=== PATIENT | male | born 1960 | race Hispanic/Latino ===

== ENCOUNTER 2017-02-14 14:23 | Emergency (ER) | payer MEDICARE ==
[2017-02-14 14:23] VITALS: BMI 32.3
[2017-02-14 14:30] VITALS: BP 142/89; PULSE 113; RESP 20; TEMP 97.9; O2SAT 96
--- NOTE | 2017-02-14 16:09 | ED PDOC ---
HPI: Psych/Substance Abuse Time Seen by Provider: 02/14/17 16:04 Chief Complaint (Nursing): Substance Abuse Chief Complaint (Provider): probable drug abuse Additional Complaint(s): 57yo M in ED for eval of ? drug OD was found in house unresponsive cyanotic and with weak pulses. pt was give narcan 2mg and immediately was responsive, alert and oriented,normal breathing pattern, normal gait, very active. in ED pt looks well appearing, wanting to leave ER-pt began to leave ER and was followed by staff and convinced to return for further examination. Pt states has hx of AFIB , hx of heavy drinking and admits when he drinks too much he passes out. denies other drug abuse. Against Medical Advice - AMA Patient Left Against Medical Advice: The patient declines admission to the hospital and wishes to leave the Emergency Department. This action is against my medical advice. This decision was made with informed refusal. The patient was told that admission to the hospital is necessary. Explanation of the reasons why were discussed. The risks of leaving were explained to the patient and include, but are not limited to, worsening of known or currently unknown conditions, permanent disability and from undiagnosed or untreated conditions. The patient has the capacity to make this informed decision and understands my explanation of the current medical problem and risks of leaving. The patient voluntarily accepts these risks and signed an AMA form documenting our conversation. The patient was given the opportunity to ask questions and reconsider. The patient was encouraged to return to the Emergency Department at any time for further care. Past Medical History Reviewed: Historical Data, Nursing Documentation, Vital Signs Vital Signs: Last Vital Signs Temp 97.9 F 02/14/17 14:25 Pulse 113 H 02/14/17 14:25 Resp 20 02/14/17 14:25 BP 142/89 02/14/17 14:25 Pulse Ox 96 02/14/17 14:25 - Medical History PMH: Anemia, Arthritis, Back Problems, HTN (No meds taken), Rheumatoid Arthritis , Chronic Pain (bilateral legs) Denies: Chronic Kidney Disease - Surgical History Surgical History: Hernia Repair (ventral) - Family History Family History: States: Unknown Family Hx - Immunization History Hx Tetanus Toxoid Vaccination: No Hx Influenza Vaccination: No Hx Pneumococcal Vaccination: No - Home Medications Home Medications: Ambulatory Orders Medication Instructions Recorded Oxycodone HCl/Acetaminophen 1 tab PO PRN PRN #0 tab 02/20/16 [Percocet 5-325 mg Tablet] Apixaban [Eliquis] 5 mg PO BID #60 tablet 09/27/16 Carvedilol [Coreg] 3.125 mg PO Q12 #60 tab 09/27/16 Prednisone [Deltasone] 20 mg PO DAILY #20 tablet 09/27/16 - Allergies Allergies/Adverse Reactions: Allergies Allergy/AdvReac Type Severity Reaction Status Date / Time colchicine AdvReac Severe NAUSEA Verified 09/23/16 20:06 indomethacin AdvReac Severe NAUSEA Verified 09/23/16 20:06 Review of Systems ROS Statement: Except As Marked, All Systems Reviewed And Found Negative Neurological: Negative for: Weakness, Numbness, Incoordination, Change in Speech , Confusion, Seizures, Altered Mental Status, Headache, Dizziness Psych: Negative for: Psychosis, Suicidal ideation Physical Exam - Reviewed Nursing Documentation Reviewed: Yes Vital Signs Reviewed: Yes - Physical Exam Appears: Positive for: Well, Non-toxic, No Acute Distress Head Exam: Positive for: ATRAUMATIC, NORMAL INSPECTION, NORMOCEPHALIC Skin: Positive for: Normal Color, Warm, DRY Eye Exam: Positive for: EOMI, Normal appearance, PERRL ENT: Positive for: Normal ENT Inspection Neck: Positive for: Normal, Painless ROM Cardiovascular/Chest: Positive for: Regular Rate, Rhythm Respiratory: Positive for: CNT, Normal Breath Sounds Gastrointestinal/Abdominal: Positive for: Normal Exam, Bowel Sounds, Soft Neurologic/Psych: Positive for: Alert, consumer banker II-XII (intact), Oriented, Mood/ Affect (well appearing. ), Gait (stable). Negative for: Motor/Sensory Deficits - ECG ECG Rhythm: Positive for: Normal QRS, Normal ST Segment O2 Sat by Pulse Oximetry: 96 - Progress ED Course And Treament: pt received narcan prior to ED arrival. pt alert and oriented over an hour, however due to hx of afib will do basic labs including Utox Medical Decision Making Medical Decision Making: pt refuses to stay for results of lab works though considering pt medical hx- however pt refuses to stay and will sign out AMA. pt made to understand the reason for blood work to make sure he is medically stable, VS have improved in ED. pt advised to return to ED for other concerns. Disposition - Clinical Impression Clinical Impression: Opioid abuse - Patient ED Disposition Is Patient to be Admitted: No - Disposition Disposition: Against Medical Advice Disposition Time: 16:22 Condition: STABLE Instructions: Polysubstance Abuse (ED)
[2017-02-14 16:40] LABS: BASO % 0.2 % (0.0-2.0); EOS % 0.3 % (0.0-4.0); HEMATOCRIT 41.9 % (35.0-51.0); LYMPH # 1.4 K/uL (1.0-4.3); LYMPH % 9.2 % (20.0-40.0); MEAN CELL VOLUME 94.7 fl (80.0-94.0); MEAN CORPUSCULAR HEMOGLOBIN 31.9 pg (27.0-31.0); MEAN CORPUSCULAR HGB CONC 33.7 g/dL (33.0-37.0); MONO # 1.1 K/uL (0.0-0.8); MONO % 7.1 % (0.0-10.0); NEUT # 12.9 K/uL (1.8-7.0); NEUT % 83.2 % (50.0-75.0); PLATELET COUNT 252 K/uL (130-400); RED CELL DISTRIBUTION WIDTH 12.6 % (11.5-14.5); WHITE BLOOD COUNT 15.5 K/uL (4.8-10.8)
[2017-02-14 16:51] LABS: ALB/GLOB RATIO 1.5 (1.0-2.1); ALCOHOL SERUM 114 mg/dl (0-10); ALKALINE PHOSPHATASE 74 U/L (38-126); ALT/SGPT 32 U/L (21-72); AST/SGOT 30 U/L (17-59); BILIRUBIN,TOTAL 0.4 mg/dl (0.2-1.3); BLOOD UREA NITROGEN 8 mg/dl (9-20); CALCIUM 9.4 mg/dL (8.4-10.2); CARBON DIOXIDE 22 mmol/L (22-30); CHLORIDE 99 mmol/L (98-107); GFR AFRICAN-AMERICAN > 60; GLUCOSE,RANDOM 94 mg/dL (75-110); SODIUM 137 mmol/l (132-148); TOTAL PROTEIN 8.5 G/DL (6.3-8.2)
[2017-02-14 18:14] LABS: BASOPHIL 1 % (0-2); NEUTROPHIL 77 % (42-75); TOTAL CELLS COUNTED 100
== END 2017-02-14 16:41 | disposition left against medical advice (07) ==
LOC: H.ER 14:23
DX: F19.10 Other psychoactive substance abuse, uncomplicated (principal)
CPT/HCPCS: 80053; 82948; 85025; 99283; G0480

== ENCOUNTER 2017-09-27 23:57 | Inpatient (IN) | payer MEDICARE ==
[2017-09-28 00:23] VITALS: BMI 33.0
[2017-09-28] MEDS ORDERED: Sodium Chloride 0.9% 1,000 ML IV STA (00:24)
[2017-09-28] MEDS ORDERED: HYDROmorphone 0.5 mg/0.5 ml ISec IVP STA ×2 (00:24→03:02)
[2017-09-28 01:01] LABS: BASO # 0.1 K/uL (0.0-0.2); BASO % 0.7 % (0.0-2.0); EOS # 0.2 K/uL (0.0-0.7); EOS % 1.4 % (0.0-4.0); HEMOGLOBIN 14.5 g/dL (12.0-18.0); LYMPH # 2.5 K/uL (1.0-4.3); LYMPH % 22.4 % (20.0-40.0); MEAN CELL VOLUME 93.2 fl (80.0-94.0); MEAN CORPUSCULAR HEMOGLOBIN 31.6 pg (27.0-31.0); MEAN CORPUSCULAR HGB CONC 33.9 g/dL (33.0-37.0); MEAN PLATELET VOLUME 8.5 fl (7.2-11.7); MONO % 8.4 % (0.0-10.0); NEUT # 7.6 K/uL (1.8-7.0); NEUT % 67.1 % (50.0-75.0); RBC 4.59 Mil/uL (4.40-5.90); RED CELL DISTRIBUTION WIDTH 13.7 % (11.5-14.5); WHITE BLOOD COUNT 11.3 K/uL (4.8-10.8)
[2017-09-28 01:16] LABS: ALBUMIN 4.5 g/dL (3.5-5.0); ALT/SGPT 29 U/L (21-72); AST/SGOT 22 U/L (17-59); BLOOD UREA NITROGEN 12 mg/dl (9-20); CALCIUM 9.8 mg/dL (8.4-10.2); GFR AFRICAN-AMERICAN > 60; GFR NON-AFRICAN AMERICAN > 60; LIPASE 68 U/L (23-300)
[2017-09-28 01:20] LABS: URINE BILIRUBIN NEGATIVE (NEGATIVE); URINE BLOOD NEGATIVE (NEGATIVE); URINE CLARITY CLEAR (Clear); URINE COLOR YELLOW (YELLOW); URINE GLUCOSE (UA) NEG (Normal); URINE LEUKOCYTE ESTERASE NEG Leu/uL (Negative); URINE NITRATE NEGATIVE (NEGATIVE); URINE PROTEIN NEGATIVE (NEGATIVE); URINE UROBILINOGEN 0.2-1.0 mg/dL (0.2-1.0)
[2017-09-28 01:21] LABS: ALB/GLOB RATIO 1.2 (1.0-2.1)
[2017-09-28 01:22] LABS: BARBITURATES, UR NEGATIVE (NEGATIVE); BENZODIAZEPINES, UR NEGATIVE (NEGATIVE); PHENCYCLIDINE, UR NEGATIVE (NEGATIVE)
[2017-09-28 01:23] LABS: OPIATES, UR POSITIVE (NEGATIVE)
[2017-09-28] MEDS ORDERED: Sodium Chloride 0.9% 50 ML IV ONE (01:41)
[2017-09-28] MEDS ORDERED: Iohexol 300 100 ML IJ ONE (01:41)
--- NOTE | 2017-09-28 02:38 | CT ---
EXAM: CT Abdomen and Pelvis With Intravenous Contrast CLINICAL HISTORY: 57 years old, male; Pain; Abdominal pain; Generalized; Prior surgery; Surgery date: 6+ months; Surgery type: Hernia repair; Additional info: Possible sbo TECHNIQUE: Axial computed tomography images of the abdomen and pelvis with intravenous contrast. All CT scans at this facility use one or more dose reduction techniques, viz.: automated exposure control; ma/kV adjustment per patient size (including targeted exams where dose is matched to indication; i.e. head); or iterative reconstruction technique. 694 images are submitted. Axial images are submitted and lung windows. Coronal and sagittal reformatted images were created and reviewed. CONTRAST: 95 mL of [id number] administered intravenously. COMPARISON: CT - ABD PELVIS PO IV CONTRAST 2016-02-04 09:00 FINDINGS: Lower thorax: Nonspecific left lower lobe and lingular infiltration representing sequela of infectious or inflammatory etiology unchanged from prior examination. Small pericardial fluid. ABDOMEN: Liver: Fatty liver. Gallbladder and bile ducts: Contracted gallbladder with gallbladder wall thickening and pericholecystic infiltration. Pancreas: Unremarkable. No mass. No ductal dilation. Spleen: Unremarkable. No splenomegaly. Adrenals: Unremarkable. No mass. Kidneys and ureters: Unremarkable. No solid mass. No hydronephrosis. Stomach and bowel: There is diastases of the anterior abdominal wall with herniation of bowel loops. There are fluid-filled bowel loops with air fluid level and bowel wall thickening and transition in the right hemiabdomen seen on image 95 series 3 suspicious for partial versus early small bowel obstruction. Correlation with patient's obstructive symptoms is recommended. Diverticulosis. Large amount of stool in the colon. Correlation with patient's clinical history of constipation is recommended. Appendix: Normal appendix. PELVIS: Bladder: Partially decompressed bladder with bladder wall thickening. Correlation with urinalysis is recommended only if clinical cystitis is suspected. Reproductive: Enlarged prostate gland. ABDOMEN and PELVIS: Intraperitoneal space: Unremarkable. No free air. No significant fluid collection. Bones/joints: L3-L4 vacuum degenerative disc disease. No acute fracture. No dislocation. Soft tissues: Unremarkable. Vasculature: Unremarkable. No abdominal aortic aneurysm. Lymph nodes: Unremarkable. No enlarged lymph nodes. Other findings: CRITICAL RESULT: The study was personally discussed on the telephone with Lauri Baxter on 09/28/2017 2:35 AM EST. The results were understood and acknowledged. IMPRESSION: 1. There is diastases of the anterior abdominal wall with herniation of bowel loops. There are fluid-filled bowel loops with air fluid level and bowel wall thickening and transition in the right hemiabdomen seen on image 95 series 3 suspicious for partial versus early small bowel obstruction. Correlation with patient's obstructive symptoms is recommended.
--- NOTE | 2017-09-28 02:38 | ED PDOC ---
HPI: Abdomen Time Seen by Provider: 09/28/17 00:17 Chief Complaint (Nursing): Abdominal Pain Chief Complaint (Provider): Abdominal Pain History Per: Patient History/Exam Limitations: no limitations Onset/Duration Of Symptoms: Days (1 day ago) Current Symptoms Are (Timing): Still Present Location Of Pain/Discomfort: Periumbilical Additional Complaint(s): 57 yo male with a past medical history of Gout,A-Fib, and chronic abdominal pain with multiple previous abdominal surgeries, presents to the ED complaining of periumbilical abdominal pain associated with distension. onset of 1 day ago. Patient denies any other complaints. PCP: Latrice Rosales Past Medical History Reviewed: Historical Data Vital Signs: Last Vital Signs Temp 98.7 F 09/28/17 03:46 Pulse 75 09/28/17 03:46 Resp 18 09/28/17 03:46 BP 148/94 H 09/28/17 03:46 Pulse Ox 97 09/28/17 03:45 - Medical History PMH: Anemia, Arthritis, Atrial Fibrillation, Back Problems, HTN (No meds taken) , Obstructive Bowel, Rheumatoid Arthritis, Chronic Pain (bilateral legs) Denies: Chronic Kidney Disease - Surgical History Surgical History: Hernia Repair (ventral) - Family History Family History: States: Unknown Family Hx - Social History Current smoker - smoking cessation education provided: No Ex-Smoker (has not smoked in the last 12 months): No Alcohol: None Drugs: Denies - Immunization History Hx Tetanus Toxoid Vaccination: No Hx Influenza Vaccination: No Hx Pneumococcal Vaccination: No - Home Medications Home Medications: Ambulatory Orders Medication Instructions Recorded Allopurinol [Zyloprim] 300 mg PO DAILY 09/28/17 Ibuprofen/Diphenhydramine Cit 2 tab PO HS PRN 09/28/17 [Advil Pm Caplet] Oxycodone HCl/Acetaminophen 1 each PO QID PRN 09/28/17 [Percocet 10-325 mg Tablet] - Allergies Allergies/Adverse Reactions: Allergies Allergy/AdvReac Type Severity Reaction Status Date / Time colchicine AdvReac Severe NAUSEA Verified 09/28/17 03:10 indomethacin AdvReac Severe NAUSEA Verified 09/28/17 03:10 Review of Systems ROS Statement: Except As Marked, All Systems Reviewed And Found Negative Constitutional: Negative for: Fever Gastrointestinal: Positive for: Abdominal Pain (periumbilical). Negative for: Nausea, Vomiting, Diarrhea Physical Exam - Reviewed Nursing Documentation Reviewed: Yes Vital Signs Reviewed: Yes - Physical Exam Appears: Positive for: Non-toxic, No Acute Distress Head Exam: Positive for: ATRAUMATIC Skin: Positive for: Normal Color, Warm Eye Exam: Positive for: Normal appearance, EOMI, PERRL Neck: Positive for: Normal, Painless ROM Cardiovascular/Chest: Positive for: Regular Rate, Rhythm. Negative for: Murmur Respiratory: Positive for: Normal Breath Sounds. Negative for: Respiratory Distress Gastrointestinal/Abdominal: Positive for: Normal Exam, Bowel Sounds (hpoactive ) , Soft, Tenderness (periumbilical region), Distended, Other (multiple surgical scars) Back: Positive for: Normal Inspection Extremity: Positive for: Normal ROM. Negative for: Pedal Edema, Deformity Neurologic/Psych: Positive for: Alert, Oriented. Negative for: Motor/Sensory Deficits - Laboratory Results Result Diagrams: 09/28/17 00:42 09/28/17 00:42 - ECG O2 Sat by Pulse Oximetry: 99 (RA) Pulse Ox Interpretation: Normal Medical Decision Making Medical Decision Making: Time: --00:23 Impression: --57 yo male with abdominal pain in setting of multiple previous abdominal surgeries and history of small bowel obstruction Plan: --ECG --Hydromorphone 1 mg IVP --Iv fluids --Heplock Insertion Reassess --02:[address] rosales, surgical consult, and she agrees with the provider's decision to admit the patient. Provider also spoke to the resident,Dr. Sheets. Patient to be admitted to the hospital --02:37 EXAM: CT Abdomen and Pelvis With Intravenous Contrast FINDINGS: Lower thorax: Nonspecific left lower lobe and lingular infiltration representing sequela of infectious or inflammatory etiology unchanged from prior examination. Small pericardial fluid. ABDOMEN: Liver: Fatty liver. Gallbladder and bile ducts: Contracted gallbladder with gallbladder wall thickening and pericholecystic infiltration. Pancreas: Unremarkable. No mass. No ductal dilation. Spleen: Unremarkable. No splenomegaly. Adrenals: Unremarkable. No mass. Kidneys and ureters: Unremarkable. No solid mass. No hydronephrosis. Stomach and bowel: There is diastases of the anterior abdominal wall with herniation of bowel loops. There are fluid-filled bowel loops with air fluid level and bowel wall thickening and transition in the right hemiabdomen seen on image 95 series 3 suspicious for partial versus early small bowel obstruction. Correlation with patient's obstructive symptoms is recommended. Diverticulosis. Large amount of stool in the colon. Correlation with patient's clinical history of constipation is recommended. Appendix: Normal appendix. PELVIS: Bladder: Partially decompressed bladder with bladder wall thickening. Correlation with urinalysis is recommended only if clinical cystitis is suspected. Reproductive: Enlarged prostate gland. ABDOMEN and PELVIS: Intraperitoneal space: Unremarkable. No free air. No significant fluid collection. Bones/joints: L3-L4 vacuum degenerative disc disease. No acute fracture. No dislocation. Soft tissues: Unremarkable. Vasculature: Unremarkable. No abdominal aortic aneurysm. Lymph nodes: Unremarkable. No enlarged lymph nodes. Other findings: CRITICAL RESULT: The study was personally discussed on the telephone with Lauri Baxter on 09/28/2017 2:35 AM EST. The results were understood and acknowledged. IMPRESSION: 1. There is diastases of the anterior abdominal wall with herniation of bowel loops. There are fluid-filled bowel loops with air fluid level and bowel wall thickening and transition in the right hemiabdomen seen on image 95 series 3 suspicious for partial versus early small bowel obstruction. Correlation with patient's obstructive symptoms is recommended. Scribe Attestation: Documented by Silverio Otero acting as a scribe for Lauri Cali MD. Disposition - Clinical Impression Clinical Impression: Small bowel obstruction - Patient ED Disposition Is Patient to be Admitted: Yes Discussed With : Lizabeth Sheets Doctor Will See Patient In The: Hospital - Disposition Disposition Time: 02:46 Condition: FAIR
[2017-09-28] MEDS ORDERED: HYDROmorphone 0.5 mg/0.5 ml ISec ONE (02:57)
[2017-09-28] MEDS ORDERED: Sodium Chloride 0.9% 1,000 ML IV SCH (03:30)
[2017-09-28] MEDS ORDERED: Morphine 4 MG/ML VIAL IVP PRN (04:10)
--- NOTE | 2017-09-28 04:22 | CP.PCM.HP ---
History of Present Illness - History of Present Illness History of Present Illness: 57 yr old M presented to ED with complaint of worsening abdominal pain x 2days. Patient denies SOB, chest pain, weakness, dizziness, diarrhea or constipation. PMHx includes multiple abdominal surgeries for small bowel obstruction and hernia repair, lumbar spondylosis with chronic pain, HTN, A-fib, gout, perforated GI ulcer, osteoarthritis. His last bowel movement was yesterday and it was normal, has tolerated PO diet today. Patient reports he has not taken his past prescribed medications in over a year because he has not followed up with us in clinic and so ran out of refills after his last admission in 09/2016. He does however follow up regularly with Dr[facility]. Dr Edwards recently gave him one refill of allopurinol for his gout. PMD: none, has not followed up in clinic as scheduled Specialists: Latrice Hylton; Dr. Edwards-pain management PMHx: small bowel obstruction and hernia repair, lumbar spondylosis with chronic pain, HTN, A-fib, gout, perforated GI ulcer, osteoarthritis SurgHx: multiple abdominal surgeries for small bowel obstruction and hernia repair FMHx: mother at 74 for [place] SocHx: occasional Etoh, tobacco 6-7 cig QD x 36 yrs, denies drugs, is homeless Medications: taking percocet 5/325 mg 1 tab PO Q6 PRN pain, taking allopurinol 300mg PO QD; Not taking: Carvedilol 3.125mg PO BID, Eliquis 5mg PO BID Allergies: colchicine and indomethacin cause him internal bleeding ED course: BP 184/112 mmHg, Pulse 112, Resp rate 18, O2 sat 99F, Temp 97.2 F -labs: CBC: WBC 11.3, rest wnl, CMP wnl, UA negative, urine drug screen positive for opioids -Abd/Pelvis CT: diasteses of the anterior abdominal wall with herniation of bowel loops, evidence suspicious for partial vs early small bowel obstruction -Ed tx: NPO, NS 1 L bolus, Dilaudid 1 mg stat x 3, Reglan 10mg IVP once, NPO Present on Admission - Present on Admission Any Indicators Present on Admission: No History of DVT/PE: No History of Uncontrolled Diabetes: No Urinary Catheter: No Decubitus Ulcer Present: No History Surgical Site Infection Following: None Review of Systems - Review of Systems All systems: reviewed and no additional remarkable complaints except (for what is mentioned in the HPI) - Constitutional Constitutional: absent: Chills, Weakness - EENT Eyes: absent: Change in Vision Ears: absent: Ear Discharge, Ear Pain Nose/Mouth/Throat: Nasal Congestion, Nasal Discharge (reports recent URI) - Cardiovascular Cardiovascular: absent: Chest Pain, Dyspnea, Leg Edema - Respiratory Respiratory: absent: Hemoptysis - Gastrointestinal Gastrointestinal: Abdominal Pain (severe). absent: Diarrhea, Nausea, Vomiting - Genitourinary Genitourinary: absent: Difficulty Urinating, Dysuria - Musculoskeletal Musculoskeletal: Back Pain (chronic-lumbar) - Integumentary Integumentary: absent: Bleeding Lesions, Rash - Neurological Neurological: absent: Dizziness, Headaches - Psychiatric Psychiatric: absent: Homicidal Ideation, Suicidal Ideation - Endocrine Endocrine: absent: Palpitations, Polyuria - Hematologic/Lymphatic Hematologic: absent: Easy Bleeding, Easy Bruising Past Patient History - Past Medical History & Family History Past Medical History?: Yes - Past Social History Alcohol: None Drugs: Denies - CARDIAC Hx Cardiac Disorders: Yes (A-fib, HTN) - PULMONARY Hx Respiratory Disorders: No - NEUROLOGICAL Hx Neurological Disorder: No - HEENT Hx HEENT Problems: No - RENAL Hx Chronic Kidney Disease: No - ENDOCRINE/METABOLIC Hx Endocrine Disorders: No - HEMATOLOGICAL/ONCOLOGICAL Hx Blood Disorders: No - INTEGUMENTARY Hx Dermatological Problems: No - MUSCULOSKELETAL/RHEUMATOLOGICAL Hx Musculoskeletal Disorders: Yes (RA, arthritis) - GASTROINTESTINAL Hx Gastrointestinal Disorders: No Hx Ulcer: Yes - GENITOURINARY/GYNECOLOGICAL Hx Genitourinary Disorders: No - PSYCHIATRIC Hx Psychophysiologic Disorder: No - SURGICAL HISTORY Hx Surgeries: Yes Hx Herniorrhaphy: Yes Hx Musculoskeletal Surgery: Yes (ankle sx R) Other/Comment: BLEEDING ULCER;RIGHT ANKLE SURGERY/LEFT HERNIA SURGERY/EPIDURAL STEROID INJECTION. Multiple abd sx - ANESTHESIA Hx Anesthesia: Yes Hx Anesthesia Reactions: No Hx Malignant Hyperthermia: No Meds Allergies/Adverse Reactions: Allergies Allergy/AdvReac Type Severity Reaction Status Date / Time colchicine AdvReac Severe NAUSEA Verified 09/28/17 03:10 indomethacin AdvReac Severe NAUSEA Verified 09/28/17 03:10 Physical Exam - Constitutional Appears: No Acute Distress - Head Exam Head Exam: ATRAUMATIC, NORMOCEPHALIC - Eye Exam Eye Exam: EOMI - ENT Exam ENT Exam: Mucous Membranes Moist - Neck Exam Neck exam: Positive for: Full Rom. Negative for: Lymphadenopathy - Respiratory Exam Respiratory Exam: Clear to Auscultation Bilateral, NORMAL BREATHING PATTERN - Cardiovascular Exam Cardiovascular Exam: REGULAR RHYTHM, +S1, +S2 - GI/Abdominal Exam GI & Abdominal Exam: Distended, Normal Bowel Sounds (multiple abdominal scars at midline), Rigid (periumbilically ) - Extremities Exam Extremities exam: Positive for: full ROM. Negative for: pedal edema - Neurological Exam Neurological exam: Alert, CN II-XII Intact, Oriented x3 - Psychiatric Exam Psychiatric exam: Normal Affect, Normal Mood - Skin Skin Exam: Dry, Warm Results - Vital Signs Recent Vital Signs: Last Vital Signs Temp 98.7 F 09/28/17 03:46 Pulse 75 09/28/17 03:46 Resp 18 09/28/17 03:46 BP 148/94 H 09/28/17 03:46 Pulse Ox 97 09/28/17 03:45 - Labs Result Diagrams: 09/28/17 00:42 09/28/17 00:42 Labs: Laboratory Results - last 24 hr 09/28/17 09/28/17 09/28/17 00:41 00:42 00:42 WBC 11.3 H RBC 4.59 Hgb 14.5 Hct 42.8 MCV 93.2 MCH 31.6 H MCHC 33.9 RDW 13.7 Plt Count 265 MPV 8.5 Neut % (Auto) 67.1 Lymph % (Auto) 22.4 Mills % (Auto) 8.4 Eos % (Auto) 1.4 Baso % (Auto) 0.7 Neut # 7.6 H Lymph # 2.5 Mills # 1.0 H Eos # 0.2 Baso # 0.1 Sodium 139 Potassium 3.6 Chloride 99 Carbon Dioxide 28 Anion Gap 16 BUN 12 Creatinine 0.7 L Est GFR ( Amer) > 60 Est GFR (Non-Af Amer) > 60 Random Glucose 129 H Lactic Acid 1.9 Calcium 9.8 Total Bilirubin 0.3 AST 22 ALT 29 Alkaline Phosphatase 75 Total Protein 8.3 H Albumin 4.5 Globulin 3.8 Albumin/Globulin Ratio 1.2 Lipase 68 Urine Color Urine Clarity Urine pH Ur Specific [place] Urine Protein Urine Glucose (UA) Urine Ketones Urine Blood Urine Nitrate Urine Bilirubin Urine Urobilinogen Ur Leukocyte Esterase Urine RBC (Auto) Urine Microscopic WBC Urine Opiates Screen Urine Methadone Screen Ur Barbiturates Screen Ur Phencyclidine Scrn Ur Amphetamines Screen U Benzodiazepines Scrn U Oth Cocaine Metabols U Cannabinoids Screen Alcohol, Quantitative < 10 09/28/17 09/28/17 00:54 00:54 WBC RBC Hgb Hct MCV MCH MCHC RDW Plt Count MPV Neut % (Auto) Lymph % (Auto) Mills % (Auto) Eos % (Auto) Baso % (Auto) Neut # Lymph # Mills # Eos # Baso # Sodium Potassium Chloride Carbon Dioxide Anion Gap BUN Creatinine Est GFR ( Amer) Est GFR (Non-Af Amer) Random Glucose Lactic Acid Calcium Total Bilirubin AST ALT Alkaline Phosphatase Total Protein Albumin Globulin Albumin/Globulin Ratio Lipase Urine Color Yellow Urine Clarity Clear Urine pH 6.0 Ur Specific [place] 1.012 Urine Protein Negative Urine Glucose (UA) Neg Urine Ketones Negative Urine Blood Negative Urine Nitrate Negative Urine Bilirubin Negative Urine Urobilinogen 0.2-1.0 Ur Leukocyte Esterase Neg Urine RBC (Auto) 2 Urine Microscopic WBC 1 Urine Opiates Screen Positive H Urine Methadone Screen Negative Ur Barbiturates Screen Negative Ur Phencyclidine Scrn Negative Ur Amphetamines Screen Negative U Benzodiazepines Scrn Negative U Oth Cocaine Metabols Negative U Cannabinoids Screen Negative Alcohol, Quantitative Assessment & Plan - Assessment and Plan (Free Text) Assessment: 57 yr old M admitted for partial vs early small bowel obstruction with PMHx of multiple abdominal surgeries for small bowel obstruction and hernia repair. 1. Partial vs early small bowel obstruction -chronic, recurrent -Abd/Pelvis CT: diasteses of the anterior abdominal wall with herniation of bowel loops, evidence suspicious for partial vs early small bowel obstruction -Surgery consult appreciated: will follow recommendations -admit to med/surg -NPO, IVF, Zofran PRN, pain management 2. HTN -chronic, uncontrolled due to noncompliance with medication -re-start Carvedilol 3.125mg PO BID -monitor BP 3. Gout -chronic, controlled -re-start Allopurinol 300mg PO QD 4. DVT prophylaxis -Lovenox 40mg SC QD - Date & Time Date: 09/28/17 Time: 03:01
--- NOTE | 2017-09-28 06:28 | CP.PCM.CON ---
History of Present Illness - History of Present Illness History of Present Illness: General Surgery Consult Note for Dr. Rosales Reason for consult: abdominal pain 57 M with PMH of multiple abdominal surgeries and recurrent SBOs presents for worsening abdominal pain Patient states that he has had pain for 2 days. He reports that became much worse ysterday afternoon. Patient states that he has had similar pain in past when diagnosed with SBO. he states that he had a bowel movement was yesterday. He was tolerating food/liquids by mouth uyesterday without nausea/vomiting. Patient reports noncompliance with medications but follows up with Dr. Edwards for pain management. He rates pain as moderate. He describes pain as constant and cramping located in periumbilical region. Denies alleviating factors but states palpation exacerbates pain. 12 point ROS only positive for pain otherwise negative. PMH: small bowel obstruction and hernia repair, lumbar spondylosis with chronic pain, HTN, Afib, gout, perforated GI ulcer, osteoarthritis Meds: As per EMR Allergy: NKDA but states colchicine and indomethacin caused gastric bleeding PSH: multiple abdominal surgeries for small bowel obstruction and hernia repair FH: mother at 75 for [place] Social: current smoker - about half packe per day for 36 years, Occasional drinker, Denies illicit drug use, homeless Review of Systems - Review of Systems All systems: reviewed and no additional remarkable complaints except (as per HPI - abdominal pain) Past Patient History - Past Medical History & Family History Past Medical History?: Yes - Past Social History Alcohol: None Drugs: Denies - CARDIAC Hx Cardiac Disorders: Yes (A-fib, HTN) - PULMONARY Hx Respiratory Disorders: No - NEUROLOGICAL Hx Neurological Disorder: No - HEENT Hx HEENT Problems: No - RENAL Hx Chronic Kidney Disease: No - ENDOCRINE/METABOLIC Hx Endocrine Disorders: No - HEMATOLOGICAL/ONCOLOGICAL Hx Blood Disorders: No - INTEGUMENTARY Hx Dermatological Problems: No - MUSCULOSKELETAL/RHEUMATOLOGICAL Hx Musculoskeletal Disorders: Yes (RA, arthritis) - GASTROINTESTINAL Hx Gastrointestinal Disorders: No Hx Ulcer: Yes - GENITOURINARY/GYNECOLOGICAL Hx Genitourinary Disorders: No - PSYCHIATRIC Hx Psychophysiologic Disorder: No - SURGICAL HISTORY Hx Surgeries: Yes Hx Herniorrhaphy: Yes Hx Musculoskeletal Surgery: Yes (ankle sx R) Other/Comment: BLEEDING ULCER;RIGHT ANKLE SURGERY/LEFT HERNIA SURGERY/EPIDURAL STEROID INJECTION. Multiple abd sx - ANESTHESIA Hx Anesthesia: Yes Hx Anesthesia Reactions: No Hx Malignant Hyperthermia: No Meds Allergies/Adverse Reactions: Allergies Allergy/AdvReac Type Severity Reaction Status Date / Time colchicine AdvReac Severe NAUSEA Verified 09/28/17 03:10 indomethacin AdvReac Severe NAUSEA Verified 09/28/17 03:10 - Medications Medications: Current Medications Allopurinol (Zyloprim) 300 mg PO DAILY [facility] Enoxaparin Sodium (Lovenox) 40 mg SC DAILY [facility] PRN Reason: Protocol Sodium Chloride (Sodium Chloride 0.9%) 1,000 mls @ 80 mls/hr IV .[id number] [facility] Last Admin: 09/28/17 03:57 Dose: 80 mls/hr Influenza Virus Vaccine (Afluria (Pf)(18yr & Older)) 0.5 ml IM .ONCE ONE Stop: 09/28/17 09:01 Morphine Sulfate (Morphine) 4 mg IVP Q6 PRN PRN Reason: Pain, moderate (4-7) Ondansetron HCl (Zofran Inj) 4 mg IVP Q6 PRN PRN Reason: Nausea/Vomiting Pneumococcal Polyvalent Vaccine (Pneumovax 23 Vaccine) 0.5 ml IM .ONCE ONE Stop: 09/28/17 09:01 Physical Exam - Constitutional Appears: No Acute Distress - Head Exam Head Exam: ATRAUMATIC, NORMOCEPHALIC - Eye Exam Eye Exam: EOMI, Normal appearance Pupil Exam: PERRL - ENT Exam ENT Exam: Mucous Membranes Moist - Respiratory Exam Respiratory Exam: NORMAL BREATHING PATTERN - Cardiovascular Exam Cardiovascular Exam: REGULAR RHYTHM - GI/Abdominal Exam GI & Abdominal Exam: Distended, Guarding (voluntary), Soft, Tenderness ( periumbilical). absent: Firm, Rebound, Rigid Additional comments: midline scars(s) from previous abdominal surgeries - Extremities Exam Extremities exam: Positive for: normal capillary refill, pedal pulses present. Negative for: calf tenderness - Back Exam Back exam: absent: CVA tenderness (L), CVA tenderness (R) - Neurological Exam Neurological exam: Alert, CN II-XII Intact, Oriented x3 - Psychiatric Exam Psychiatric exam: Normal Affect, Normal Mood - Skin Skin Exam: Dry, Intact, Normal Color, Warm Results - Vital Signs Recent Vital Signs: Last Vital Signs Temp 97.6 F 09/28/17 04:15 Pulse 73 09/28/17 04:15 Resp 20 09/28/17 04:15 BP 153/94 H 09/28/17 04:15 Pulse Ox 96 09/28/17 04:15 - Labs Result Diagrams: 09/28/17 00:42 09/28/17 00:42 Labs: Laboratory Results - last 24 hr 09/28/17 09/28/17 09/28/17 00:41 00:42 00:42 WBC 11.3 H RBC 4.59 Hgb 14.5 Hct 42.8 MCV 93.2 MCH 31.6 H MCHC 33.9 RDW 13.7 Plt Count 265 MPV 8.5 Neut % (Auto) 67.1 Lymph % (Auto) 22.4 [place] % (Auto) 8.4 Eos % (Auto) 1.4 Baso % (Auto) 0.7 Neut # 7.6 H Lymph # 2.5 [place] # 1.0 H Eos # 0.2 Baso # 0.1 Sodium 139 Potassium 3.6 Chloride 99 Carbon Dioxide 28 Anion Gap 16 BUN 12 Creatinine 0.7 L Est GFR ( Amer) > 60 Est GFR (Non-Af Amer) > 60 Random Glucose 129 H Lactic Acid 1.9 Calcium 9.8 Total Bilirubin 0.3 AST 22 ALT 29 Alkaline Phosphatase 75 Total Protein 8.3 H Albumin 4.5 Globulin 3.8 Albumin/Globulin Ratio 1.2 Lipase 68 Urine Color Urine Clarity Urine pH Ur Specific [place] Urine Protein Urine Glucose (UA) Urine Ketones Urine Blood Urine Nitrate Urine Bilirubin Urine Urobilinogen Ur Leukocyte Esterase Urine RBC (Auto) Urine Microscopic WBC Urine Opiates Screen Urine Methadone Screen Ur Barbiturates Screen Ur Phencyclidine Scrn Ur Amphetamines Screen U Benzodiazepines Scrn U Oth Cocaine Metabols U Cannabinoids Screen Alcohol, Quantitative < 10 09/28/17 09/28/17 00:54 00:54 WBC RBC Hgb Hct MCV MCH MCHC RDW Plt Count MPV Neut % (Auto) Lymph % (Auto) [place] % (Auto) Eos % (Auto) Baso % (Auto) Neut # Lymph # [place] # Eos # Baso # Sodium Potassium Chloride Carbon Dioxide Anion Gap BUN Creatinine Est GFR ( Amer) Est GFR (Non-Af Amer) Random Glucose Lactic Acid Calcium Total Bilirubin AST ALT Alkaline Phosphatase Total Protein Albumin Globulin Albumin/Globulin Ratio Lipase Urine Color Yellow Urine Clarity Clear Urine pH 6.0 Ur Specific [place] 1.012 Urine Protein Negative Urine Glucose (UA) Neg Urine Ketones Negative Urine Blood Negative Urine Nitrate Negative Urine Bilirubin Negative Urine Urobilinogen 0.2-1.0 Ur Leukocyte Esterase Neg Urine RBC (Auto) 2 Urine Microscopic WBC 1 Urine Opiates Screen Positive H Urine Methadone Screen Negative Ur Barbiturates Screen Negative Ur Phencyclidine Scrn Negative Ur Amphetamines Screen Negative U Benzodiazepines Scrn Negative U Oth Cocaine Metabols Negative U Cannabinoids Screen Negative Alcohol, Quantitative Assessment & Plan - Assessment and Plan (Free Text) Plan: 57 M with abdominal pain, suspected SBO -NPO -NG tube to low intermittent suction (14 fr) -IV fluids -IV antibiotics -Analgesics/Antiemtics PRN -GI/DVT ppx -Will discuss with Dr. Bobby Fu PGY1
[2017-09-28] MEDS ORDERED: HYDROmorphone 0.5 mg/0.5 ml ISec IVP PRN (08:54)
[2017-09-28] MEDS ORDERED: Pneumococcal 23-Valent Vaccine IM ONE (09:00)
[2017-09-28] MEDS ORDERED: Enoxaparin 40 mg Syringe SC SCH (09:00)
[2017-09-28] MEDS ORDERED: Influenza Vaccine 18yr & older 0.5 ML/45 MCG SYR IM ONE (09:00)
[2017-09-28] MEDS: Sodium Chloride 0.9% 1,000 ML IV SCH ×2 (13:35→21:04)
[2017-09-28] MEDS ORDERED: BENZOCAINE SPR MM ONE (16:21)
[2017-09-28] MEDS ORDERED: Chlorhexidine Gluconate 1 APPL/PKT TP ONE (19:49)
[2017-09-28] MEDS: metroNIDAZOLE 500mg/100ml NS 100 ML IVPB SCH (21:05)
[2017-09-29] MEDS: metroNIDAZOLE 500mg/100ml NS 100 ML IVPB SCH ×2 (02:20→08:38)
[2017-09-29 06:33] LABS: BASO % 0.3 % (0.0-2.0); EOS # 0.1 K/uL (0.0-0.7); EOS % 0.5 % (0.0-4.0); HEMOGLOBIN 13.3 g/dL (12.0-18.0); LYMPH # 1.4 K/uL (1.0-4.3); LYMPH % 10.2 % (20.0-40.0); MEAN CELL VOLUME 92.2 fl (80.0-94.0); MEAN CORPUSCULAR HEMOGLOBIN 31.8 pg (27.0-31.0); MEAN CORPUSCULAR HGB CONC 34.5 g/dL (33.0-37.0); MEAN PLATELET VOLUME 7.8 fl (7.2-11.7); MONO # 1.1 K/uL (0.0-0.8); MONO % 8.1 % (0.0-10.0); NEUT # 11.1 K/uL (1.8-7.0); NEUT % 80.9 % (50.0-75.0); RBC 4.17 Mil/uL (4.40-5.90); RED CELL DISTRIBUTION WIDTH 13.6 % (11.5-14.5); WHITE BLOOD COUNT 13.8 K/uL (4.8-10.8)
[2017-09-29 06:48] LABS: ALB/GLOB RATIO 1.1 (1.0-2.1); ALBUMIN 3.9 g/dL (3.5-5.0); ALT/SGPT 33 U/L (21-72); AST/SGOT 18 U/L (17-59); BLOOD UREA NITROGEN 6 mg/dl (9-20); CALCIUM 9.2 mg/dL (8.4-10.2); GFR AFRICAN-AMERICAN > 60; GFR NON-AFRICAN AMERICAN > 60
--- NOTE | 2017-09-29 07:30 | CP.PCM.PN ---
Subjective - Date & Time of Evaluation Date of Evaluation: 09/29/17 Time of Evaluation: 07:24 - Subjective Subjective: General Surgery: Dr Rosales Pt S&E. ADRIANO. Main complaint of foot and elbow pain 2/2 to gout. Pt also reports not passing any flatus. Continued abdominal pain. Unable to get out of bed secondary to leg pain. Multiple attempts made to pass NGT but unsuccessfully, pt now refusing. Objective - Vital Signs/Intake and Output Vital Signs (last 24 hours): Temp Pulse Resp BP Pulse Ox 97.5 F L 70 19 162/93 H 97 09/29/17 00:00 09/29/17 00:00 09/29/17 00:00 09/29/17 00:00 09/29/17 00:00 - Medications Medications: Current Medications Allopurinol (Zyloprim) 300 mg PO DAILY [facility] Last Admin: 09/28/17 15:41 Dose: Not Given Carvedilol (Coreg) 3.125 mg PO Q12 [facility] Last Admin: 09/28/17 21:09 Dose: 3.125 mg Enoxaparin Sodium (Lovenox) 40 mg SC DAILY [facility] PRN Reason: Protocol Last Admin: 09/28/17 09:49 Dose: 40 mg Hydromorphone HCl (Dilaudid) 1 mg IVP Q6 PRN PRN Reason: Pain, severe (8-10) Last Admin: 09/29/17 06:00 Dose: 1 mg Hydromorphone HCl (Dilaudid) 0.5 mg IVP Q6 PRN PRN Reason: Pain, moderate (4-7) Stop: 09/30/17 08:54 Last Admin: 09/28/17 13:33 Dose: 0.5 mg Sodium Chloride (Sodium Chloride 0.9%) 1,000 mls @ 150 mls/hr IV .Q6H40M [facility] Last Admin: 09/28/17 21:04 Dose: 150 mls/hr Metronidazole (Flagyl 500mg/100ml Ns) 100 mls @ 100 mls/hr IVPB Q8 [facility] PRN Reason: Protocol Last Admin: 09/29/17 02:20 Dose: 100 mls/hr Ceftriaxone Sodium 1 gm/ (Sodium Chloride) 100 mls @ 100 mls/hr IVPB Q12@1000, 2200 [facility] PRN Reason: Protocol Ondansetron HCl (Zofran Inj) 4 mg IVP Q6 PRN PRN Reason: Nausea/Vomiting Pantoprazole Sodium (Protonix Inj) 40 mg IVP DAILY [facility] - Labs Labs: 09/29/17 06:20 09/29/17 06:20 - Constitutional Appears: Non-toxic, No Acute Distress - Respiratory Exam Respiratory Exam: absent: Accessory Muscle Use, Respiratory Distress - Cardiovascular Exam Cardiovascular Exam: REGULAR RHYTHM. absent: Tachycardia - GI/Abdominal Exam GI & Abdominal Exam: Distended, Firm, Tenderness (tender above ventral hernia ) , Hernia (ventral hernia ). absent: Guarding, Rigid, Mass, Rebound - Neurological Exam Neurological Exam: Alert, Awake, Oriented x3 - Psychiatric Exam Psychiatric exam: Normal Affect, Normal Mood - Skin Skin Exam: Normal Color, Warm Assessment and Plan - Assessment and Plan (Free Text) Assessment: 57M with incarcerated vental hernia and acute gout inflammation Plan: cont NPO cont IVF allopurinol may worsen acute gout flare-up can consider ACTH since pt allergic to colchicine pt refusing NGT refrain from corticosteroids at this time as pt may need surgery for hernia further recs pending attending eval will d/w Dr Bobby August, PGY3
[2017-09-29 09:55] LABS: PARTIAL THROMBOPLASTIN TIME 31.9 Seconds (25.6-37.1); PROTHROMBIN TIME 11.5 Seconds (9.8-13.1)
--- NOTE | 2017-09-29 10:19 | CP.PCM.PN ---
Subjective - Date & Time of Evaluation Date of Evaluation: 09/29/17 Time of Evaluation: 09:51 - Subjective Subjective: Family Medicine 57 year old male patient seen and evaluated at bedside. No acute events overnight. Reports continued abdominal pain, controlled via pain medications. Patient states his last bowel movement was 2 days ago; has not had a BM or passed flatus since admission. Patient aware he is scheduled for surgery this AM. NPO confirmed. Patient also endorses pain and increased sensitivity to touch in his left elbow and left foot secondary to gouty attack. Relates that he was recently prescribed allopurinol by Dr. Edwards and had been taking it as directed for the past 2 weeks. Denies SOB, chest pain, palpitations, headache, nausea, vomiting, dizziness, diarrhea. Objective - Vital Signs/Intake and Output Vital Signs (last 24 hours): Temp Pulse Resp BP Pulse Ox 98.8 F 73 20 175/96 H 96 09/29/17 07:43 09/29/17 08:38 09/29/17 07:43 09/29/17 08:38 09/29/17 07:43 - Medications Medications: Current Medications Allopurinol (Zyloprim) 300 mg PO DAILY [facility] Last Admin: 09/29/17 08:29 Dose: Not Given Carvedilol (Coreg) 3.125 mg PO Q12 [facility] Last Admin: 09/29/17 08:38 Dose: 3.125 mg Enoxaparin Sodium (Lovenox) 40 mg SC DAILY [facility] PRN Reason: Protocol Last Admin: 09/28/17 09:49 Dose: 40 mg Hydromorphone HCl (Dilaudid) 0.5 mg IVP Q6 PRN PRN Reason: Pain, moderate (4-7) Stop: 09/30/17 08:54 Last Admin: 09/28/17 13:33 Dose: 0.5 mg Hydromorphone HCl (Dilaudid) 1 mg IVP Q3H PRN PRN Reason: Pain, Mild (1-3) Last Admin: 09/29/17 08:35 Dose: 1 mg Sodium Chloride (Sodium Chloride 0.9%) 1,000 mls @ 150 mls/hr IV .Q6H40M [facility] Last Admin: 09/28/17 21:04 Dose: 150 mls/hr Metronidazole (Flagyl 500mg/100ml Ns) 100 mls @ 100 mls/hr IVPB Q8 [facility] PRN Reason: Protocol Last Admin: 09/29/17 08:38 Dose: 100 mls/hr Ceftriaxone Sodium 1 gm/ (Sodium Chloride) 100 mls @ 100 mls/hr IVPB Q12@1000, 2200 [facility] PRN Reason: Protocol Ondansetron HCl (Zofran Inj) 4 mg IVP Q6 PRN PRN Reason: Nausea/Vomiting Pantoprazole Sodium (Protonix Inj) 40 mg IVP DAILY [facility] Last Admin: 09/29/17 08:42 Dose: 40 mg - Labs Labs: 09/29/17 06:20 09/29/17 06:20 - Constitutional Appears: Well, Non-toxic, No Acute Distress - Head Exam Head Exam: ATRAUMATIC, NORMAL INSPECTION, NORMOCEPHALIC - Eye Exam Eye Exam: EOMI, Normal appearance Pupil Exam: NORMAL ACCOMODATION, PERRL - ENT Exam ENT Exam: Mucous Membranes Moist, Normal Exam - Neck Exam Neck Exam: Full ROM. absent: Lymphadenopathy, Tenderness - Respiratory Exam Respiratory Exam: Clear to Ausculation Bilateral, NORMAL BREATHING PATTERN - Cardiovascular Exam Cardiovascular Exam: REGULAR RHYTHM, +S1, +S2 - GI/Abdominal Exam GI & Abdominal Exam: Distended, Firm (periumbilical region), Tenderness, Hernia (ventral hernia) Additional comments: Multiple surgical scars - Extremities Exam Extremities Exam: Joint Swelling, Pedal Edema, Tenderness. absent: Full ROM Additional comments: Non-pitting edema, hyperesthesia, and pain on palpation to left elbow, left ankle, left hallux. Increased warmth to left elbow. - Neurological Exam Neurological Exam: Alert, Awake, Oriented x3 - Psychiatric Exam Psychiatric exam: Normal Affect, Normal Mood - Skin Skin Exam: Dry, Intact, Normal Color, Warm Assessment and Plan - Assessment and Plan (Free Text) Assessment: 57 yr old M admitted for partial vs early small bowel obstruction with PMHx of multiple abdominal surgeries for small bowel obstruction and hernia repair. 1. Partial vs early small bowel obstruction -Abd/Pelvis CT: diasteses of the anterior abdominal wall with herniation of bowel loops, evidence suspicious for partial vs early small bowel obstruction -Patient refused NGT after multiple unsuccessful attempts -Surgery consult appreciated: plan for ex lap today for incarcerated ventral hernia; NPO -Continue IVF - NS 150 mLs/hr -Zofran PRN -Protonix 40mg IV QD -Pain control - Dilaudid 0.5-1mg IV; consider SNOW RANGER for pain s/p sx 2. HTN -Chronic, uncontrolled due to noncompliance with medication -Re-start Carvedilol 3.125mg PO BID -Monitor BP 3. Gout -D/c home med: Allopurinol 300mg PO QD -Allergies colchicine, indomethacin - f/u -No steroids per surgery 4. DVT prophylaxis -Lovenox 40mg SC QD, held for OR
[2017-09-29] MEDS ORDERED: Propofol 10 mg/ml Inj (20 ML) ONE ×2 (10:39→12:05)
[2017-09-29] MEDS ORDERED: Succinylcholine 200 mg/10 ml Inj IV ONE (10:39)
[2017-09-29] MEDS ORDERED: Rocuronium 10 mg/ml (5 ml) ONE ×2 (10:41→11:52)
[2017-09-29] MEDS ORDERED: Lidocaine 4% (Laryng-O-Jet) Kit MM ONE (10:41)
[2017-09-29] MEDS ORDERED: Neostigmine Methylsulfate 3mg/3ml Syringe IV ONE (10:43)
[2017-09-29] MEDS ORDERED: Neostigmine Methylsulfate 2 MG/2 ML ML IV ONE (10:43)
[2017-09-29] MEDS ORDERED: Midazolam 2 MG/2 ML VIAL ONE (10:48)
[2017-09-29] MEDS ORDERED: Lactated Ringer's 1,000 ML IV ONE ×2 (11:00→11:40)
[2017-09-29] MEDS ORDERED: cefTRIAXone (Rocephin) 1 gm Inj IVPB ONE (11:05)
--- NOTE | 2017-09-29 12:48 | PCM.SURG1 ---
Surgeon's Initial Post Op Note - Surgeon's Notes Surgeon: Dr Rosales Duplicating Machine Operator: Dr August PGY3, Dr Elizabeth PGY2 Type of Anesthesia: General Endo Anesthesia Administered By: Dr Edwards Pre-Operative Diagnosis: incarcerated hernia. sbo Operative Findings: see report for full detail Post-Operative Diagnosis: as above Operation Performed: exploratory laparotomy. lysis of adhesions. partial removal of Gortex mesh Specimen/Specimens Removed: partial mesh Estimated Blood Loss: EBL {In ML}: 25 Blood Products Given: N/A Drains Used: No Drains Post-Op Condition: Good Date of Surgery/Procedure: 09/29/17 Time of Surgery/Procedure: 12:48
[2017-09-29] MEDS ORDERED: Dexamethasone 4 mg/1 ml IVP PRN (12:56)
[2017-09-29] MEDS ORDERED: HYDROmorphone 0.5 mg/0.5 ml ISec ONE ×2 (13:16→13:30)
[2017-09-29] MEDS: HYDROmorphone 0.5 mg/0.5 ml ISec IVP PRN ×2 (13:20→13:32)
[2017-09-29] MEDS ORDERED: Potassium Chloride 20 mEq ER Tab PO ONE (13:26)
--- NOTE | 2017-09-29 16:21 | CP.PCM.PCO ---
Summary - Summary of Event Summary of Event: S:pt seen after OR procedure. pain controlled with TRANS ROUTER. no BM, not passing gas. O:abd tender to palpation NC in place A/P: -TRANS ROUTER for pain control -NPO, IVF for now, restart diet
--- NOTE | 2017-09-30 07:20 | CP.PCM.PN ---
Addendum entered and electronically signed by Matthew Gill DPM 09/30/17 14:29: Addend to assessment/plan: Patient has history of atrial fibrillation however recent EKG demonstrates NSR; clinically unable to determine Acute on chronic gout noted to left elbow, left wrist, left knee, left ankle, and left 1st MPJ. Original Note: Subjective - Date & Time of Evaluation Date of Evaluation: 09/30/17 Time of Evaluation: 07:14 - Subjective Subjective: Family Medicine 57 year old male patient seen and evaluated at bedside 1 day s/p exploratory laparotomy. No acute events overnight. Patient tolerated procedure well, currently complaining of dull/achy periumbilical pain, controlled via [employer]PER pump. States he has passed flatus s/p surgery, no BM. Patient complaining of persistent moderate pain and increased sensitivity to touch in his left elbow, left foot, and now his left knee secondary to gouty attack. Patient states his last minor attack was 1.5 weeks ago, and last attack of this severity was approximately 5 months ago. Patient states he has taken colchicine and indomethacin in the past however both resulted in GI bleeds. Patient complaining of his NGT. Denies SOB, chest pain, palpitations, headache, nausea, vomiting, dizziness, diarrhea. Objective - Vital Signs/Intake and Output Vital Signs (last 24 hours): Temp Pulse Resp BP Pulse Ox 98.2 F 92 H 19 160/88 H 97 09/30/17 00:00 09/30/17 00:00 09/30/17 00:00 09/30/17 00:00 09/30/17 00:00 - Medications Medications: Current Medications Carvedilol (Coreg) 3.125 mg PO Q12 [facility] Last Admin: 09/29/17 21:01 Dose: 3.125 mg Enoxaparin Sodium (Lovenox) 40 mg SC DAILY [facility] PRN Reason: Protocol Last Admin: 09/28/17 09:49 Dose: 40 mg Hydromorphone HCl (Dilaudid 0.2 Mg/Ml Reading Efficiency Course Director) 0 mg IV PRN PRN; Protocol PRN Reason: Pain, severe (8-10) Last Admin: 09/30/17 05:18 Dose: 6 mg Sodium Chloride (Sodium Chloride 0.9%) 1,000 mls @ 150 mls/hr IV .Q6H40M [facility] Last Admin: 09/28/17 21:04 Dose: 150 mls/hr Ondansetron HCl (Zofran Inj) 4 mg IVP Q6 PRN PRN Reason: Nausea/Vomiting Pantoprazole Sodium (Protonix Inj) 40 mg IVP DAILY [facility] Last Admin: 09/29/17 08:42 Dose: 40 mg - Labs Labs: 09/29/17 06:20 09/29/17 06:20 PT 11.5 Seconds (9.8-13.1) 09/29/17 09:32 INR 1.0 (0.9-1.2) 09/29/17 09:32 APTT 31.9 Seconds (25.6-37.1) 09/29/17 09:32 - Constitutional Appears: Well, Non-toxic, No Acute Distress - Head Exam Head Exam: ATRAUMATIC, NORMAL INSPECTION, NORMOCEPHALIC - Eye Exam Eye Exam: EOMI, Normal appearance Pupil Exam: NORMAL ACCOMODATION, PERRL - ENT Exam ENT Exam: Mucous Membranes Moist, Normal Exam - Neck Exam Neck Exam: Full ROM, Normal Inspection. absent: Tenderness - Respiratory Exam Respiratory Exam: Clear to Ausculation Bilateral, NORMAL BREATHING PATTERN - Cardiovascular Exam Cardiovascular Exam: REGULAR RHYTHM, +S1, +S2 - GI/Abdominal Exam GI & Abdominal Exam: Distended, Firm, Guarding, Tenderness (Tenderness to palpation periumbilical region), Hypoactive Bowel Sounds Additional comments: Multiple surgical scars Abdominal dressing in place - Extremities Exam Extremities Exam: Joint Swelling, Normal Capillary Refill, Pedal Edema, Tenderness. absent: Full ROM Additional comments: Non-pitting edema, hyperesthesia, increased warmth and pain on palpation to left elbow, left knee, left ankle, left hallux. Decreased ROM left elbow, left knee, left ankle, left hallux. - Neurological Exam Neurological Exam: Alert, Awake, Oriented x3 - Psychiatric Exam Psychiatric exam: Normal Affect, Normal Mood - Skin Skin Exam: Dry, Normal Color, Warm Assessment and Plan - Assessment and Plan (Free Text) Assessment: 57 yr old M admitted for partial vs early small bowel obstruction with PMHx of multiple abdominal surgeries for small bowel obstruction and hernia repair. 1. Partial vs early small bowel obstruction -Abd/Pelvis CT: diasteses of the anterior abdominal wall with herniation of bowel loops, evidence suspicious for partial vs early small bowel obstruction -Surgery consult: POD#1 exploratory laparotomy, lysis of adhesions, partial removal of Gortex mesh -Zofran PRN -Protonix 40mg IV QD -Pain control - Dilaudid [employer] HELPER -Continue incentive spirometer every hour -Advance to liquid diet per surgery -PT/OT 2. HTN -Chronic, uncontrolled due to noncompliance with medication -Increase Carvedilol from 3.125mg to 6.25mg PO BID -Monitor BP 3. Gout -D/c home med: Allopurinol 300mg PO QD -Allergies colchicine, indomethacin - GI bleed -Start Ibuprofen 600mg q6h - will monitor closely -Protonix 40mg IV QD -No steroids per surgery 4. Lumbar Spondylosis -stable 5. DVT prophylaxis -Lovenox 40mg SC QD held for now, will restart tomorrow AM -SCDs
[2017-09-30 07:52] LABS: HEMOGLOBIN 13.4 g/dL (12.0-18.0); MEAN CELL VOLUME 92.9 fl (80.0-94.0); MEAN CORPUSCULAR HEMOGLOBIN 31.8 pg (27.0-31.0); MEAN CORPUSCULAR HGB CONC 34.2 g/dL (33.0-37.0); RBC 4.2 Mil/uL (4.40-5.90); RED CELL DISTRIBUTION WIDTH 13.3 % (11.5-14.5); WHITE BLOOD COUNT 16.4 K/uL (4.8-10.8)
[2017-09-30 07:54] LABS: BLOOD UREA NITROGEN 5 mg/dl (9-20); CALCIUM 9.3 mg/dL (8.4-10.2); GFR AFRICAN-AMERICAN > 60; GFR NON-AFRICAN AMERICAN > 60
--- NOTE | 2017-09-30 09:24 | CP.PCM.PN ---
Subjective - Date & Time of Evaluation Date of Evaluation: 09/30/17 Time of Evaluation: 09:22 - Subjective Subjective: General Surgery Progress Note for Dr. Rosales This patient was seen and examined this AM at bedside. No acute events overnight. Patient voiding, and passing flatus. No nausea or vomiting and minimal NGT output. Reports appropriate inscional pain when turning. His major complaint is his gout. Objective - Vital Signs/Intake and Output Vital Signs (last 24 hours): Temp Pulse Resp BP Pulse Ox 98.0 F 87 20 144/76 98 09/30/17 08:06 09/30/17 08:06 09/30/17 08:06 09/30/17 08:06 09/30/17 08:06 - Medications Medications: Current Medications Carvedilol (Coreg) 6.25 mg PO Q12 [facility] Enoxaparin Sodium (Lovenox) 40 mg SC DAILY [facility] PRN Reason: Protocol Last Admin: 09/28/17 09:49 Dose: 40 mg Hydromorphone HCl (Dilaudid 0.2 Mg/Ml Final Assembler Boat) 0 mg IV PRN PRN; Protocol PRN Reason: Pain, severe (8-10) Last Admin: 09/30/17 05:18 Dose: 6 mg Sodium Chloride (Sodium Chloride 0.9%) 1,000 mls @ 150 mls/hr IV .Q6H40M [facility] Last Admin: 09/28/17 21:04 Dose: 150 mls/hr Ondansetron HCl (Zofran Inj) 4 mg IVP Q6 PRN PRN Reason: Nausea/Vomiting Pantoprazole Sodium (Protonix Inj) 40 mg IVP DAILY [facility] Last Admin: 09/30/17 08:48 Dose: 40 mg - Labs Labs: 09/30/17 07:25 09/30/17 07:25 PT 11.5 Seconds (9.8-13.1) 09/29/17 09:32 INR 1.0 (0.9-1.2) 09/29/17 09:32 APTT 31.9 Seconds (25.6-37.1) 09/29/17 09:32 - Constitutional Appears: Non-toxic, No Acute Distress - Head Exam Head Exam: ATRAUMATIC, NORMOCEPHALIC - Eye Exam Eye Exam: EOMI - ENT Exam ENT Exam: Mucous Membranes Moist - Respiratory Exam Respiratory Exam: NORMAL BREATHING PATTERN - Cardiovascular Exam Cardiovascular Exam: +S1, +S2 - GI/Abdominal Exam GI & Abdominal Exam: Soft. absent: Firm, Guarding, Rigid, Tenderness Additional comments: Dressing with CDI - Neurological Exam Neurological Exam: Alert, Awake - Psychiatric Exam Psychiatric exam: Normal Affect, Normal Mood - Skin Skin Exam: Dry, Intact Assessment and Plan - Assessment and Plan (Free Text) Assessment: This is a 57M POD#1 s/p incareated ventral hernia repair VSS D/C NGT Clear liquid diet OOB to chair D/W Dr. Bobby Elizabteh PGY2
[2017-09-30] MEDS: Sodium Chloride 0.9% 1,000 ML IV SCH (11:06)
--- NOTE | 2017-09-30 13:09 | PQF GENQUE ---
This form is a permanent part of the medical record 09/30/17 Dr. Pritesh Khan, Please clarify the type of atrial fibrillation. Documentation of a history of atrial fibrillation. Treated with Coreg. Clarification of your documentation is requested to better reflect the severity of illness and intensity of treatment of your patient. Indicators present [] Specify: [] [] Specify: [] [] Specify: [] [] Specify: [] Location in the medical record that reflects the above clinical findings: [] Treatment Provided: [] PHYSICIAN'S RESPONSE Please clarify the type of atrial fibrillation: [] Chronic [] Paroxysmal [] Permanent [] Persistent [] Other (please specify type) [] Clinically unable to determine [] Unknown Based on your medical judgment of the clinical indicators outlined above please clarify the following: [] Practitioner response [] If unable to determine, please check the box, sign and date. Present On Admission (POA) Indicator: [] Present at the time of admission [] Not present at the time of admission [] Clinically Undetermined In responding to this query, please exercise your independent professional judgment. The fact that a question is asked does not imply that any particular answer is desired or expected. Thank you for your clarification on this documentation. If you have any questions please call:extension [phone] * Thank you, Elizabeth Roberts RN CDMP [facility]
--- NOTE | 2017-09-30 13:29 | PQF GENQUE ---
This form is a permanent part of the medical record 09/30/17 Dr. Pritesh Khan, 1) Please specify the acuity of gout: Acute, Chronic with or without Tophus, Other, Unable to determine 2) Please specify the specific joint involved along with laterality 3) Please clarify the specificity type/cause of gout: Idiopathic, Primary, Secondary, Drug-induced, Lead-induced, Other, Unable to determine Documentation of Gout. Patient is on Allopurinol and Ibuprofen started. Clarification of your documentation is requested to better reflect the severity of illness and intensity of treatment of your patient. Indicators present [] Specify: [] [] Specify: [] [] Specify: [] [] Specify: [] Location in the medical record that reflects the above clinical findings: [] Treatment Provided: [] PHYSICIAN'S RESPONSE Based on your medical judgment of the clinical indicators outlined above please clarify the following: [] Practitioner response [] If unable to determine, please check the box, sign and date. Present On Admission (POA) Indicator: [] Present at the time of admission [] Not present at the time of admission [] Clinically Undetermined In responding to this query, please exercise your independent professional judgment. The fact that a question is asked does not imply that any particular answer is desired or expected. Thank you for your clarification on this documentation. If you have any questions please call:ext [phone] * Thank you, Elizabeth Roberts RN [facility]
--- NOTE | 2017-09-30 19:32 | OP ---
PROCEDURE DATE: 09/29/2017 SURGEON: Latrice Rosales MD ASSISTANTS: Dr. August and Dr. Elizabeth. ANESTHESIA: General. ANESTHESIOLOGIST: Dr. Edwards. PREOPERATIVE DIAGNOSES: Incarcerated incisional hernia, small bowel obstruction. POSTOPERATIVE DIAGNOSES: Incarcerated incisional hernia, small bowel obstruction. PROCEDURES PERFORMED: Laparotomy, lysis of adhesions, removal of mesh and repair of incisional hernia. DESCRIPTION OF OPERATION: With the patient in the supine position under adequate general anesthesia, the abdomen was prepped and draped in the usual sterile manner. The patient had a palpable hernia to the right of the umbilicus, which was tender on examination and painful and a longitudinal incision was made overlying this area of swelling, taken down through the full thickness of skin. Beneath the skin layer, there was noted to be some eventrated mesh which was carefully opened into communication with the peritoneal cavity. There was noted to be some pseudocapsule formation around what appeared to be a cortex-coated mesh and the bowel was freed from the mesh circumferentially to allow the peritoneal cavity to be entered and allow the bowel to be inspected. No definite site of obstruction was identified although there were also noted to be multiple interloop adhesions, but no definite area of dilatation or constriction and within the peritoneal cavity, there was also noted to be some adherence more medially of the bowel to a larger anterior mesh, but again no definite dilated loops were identified. The incarcerated loops were delivered back into the peritoneal cavity below the level of the [place] fascia and the excess mesh was freed from the subcutaneous tissue down to the edge of the fascia with an adequate margin of free peritoneum on each side to allow closure. The incision was then closed with interrupted [id number] sutures of #1 PDS. Subcutaneous tissue was approximated with some 3-0 Vicryl sutures and the skin was closed with pily. Dry sterile dressing was applied. The patient tolerated the procedure well and transferred to recovery room in stable condition. Estimated blood loss for the procedure 25 mL. Latrice Rosales MD [facility]
[2017-10-01 06:26] LABS: BLOOD UREA NITROGEN 7 mg/dl (9-20); CALCIUM 9.3 mg/dL (8.4-10.2); GFR AFRICAN-AMERICAN > 60; GFR NON-AFRICAN AMERICAN > 60
[2017-10-01 06:33] LABS: HEMOGLOBIN 11.8 g/dL (12.0-18.0); MEAN CELL VOLUME 94.2 fl (80.0-94.0); MEAN CORPUSCULAR HEMOGLOBIN 31.8 pg (27.0-31.0); MEAN CORPUSCULAR HGB CONC 33.8 g/dL (33.0-37.0); RBC 3.73 Mil/uL (4.40-5.90); RED CELL DISTRIBUTION WIDTH 13.4 % (11.5-14.5); WHITE BLOOD COUNT 14.9 K/uL (4.8-10.8)
--- NOTE | 2017-10-01 06:42 | CP.PCM.PN ---
Subjective - Date & Time of Evaluation Date of Evaluation: 10/01/17 Time of Evaluation: 06:42 - Subjective Subjective: Family Medicine 57 year old male seen and evaluated at bedside 2 days s/p exploratory laparotomy. Patient endorses continued dull/achy periumbilical pain, decreased since yesterday and well-controlled. Admits to passing flatus, still no BM, able to void freely. Tolerating liquid diet; requesting advancement of diet. Reports continued moderate pain in LUE and LLE from gouty attack, only slightly improving however admits to slight improvement in LUE/LLE movement. Attempted to work with physical therapy yesterday but unable to ambulate 2/2 pain. Denies SOB, chest pain, palpitations, headache, nausea, vomiting, dizziness, diarrhea. Objective - Vital Signs/Intake and Output Vital Signs (last 24 hours): Temp Pulse Resp BP Pulse Ox 97.8 F 75 19 125/73 95 10/01/17 00:12 10/01/17 00:12 10/01/17 00:12 10/01/17 00:12 10/01/17 00:12 - Medications Medications: Current Medications Allopurinol (Zyloprim) 300 mg PO DAILY [facility] Last Admin: 09/30/17 11:05 Dose: 300 mg Carvedilol (Coreg) 6.25 mg PO Q12 [facility] Last Admin: 09/30/17 21:24 Dose: 6.25 mg Enoxaparin Sodium (Lovenox) 40 mg SC DAILY [facility] PRN Reason: Protocol Last Admin: 09/28/17 09:49 Dose: 40 mg Hydromorphone HCl (Dilaudid) 1 mg IVP Q3 PRN PRN Reason: Pain, moderate (4-7) Last Admin: 10/01/17 04:15 Dose: 1 mg Hydromorphone HCl (Dilaudid) 2 mg IVP Q4 PRN PRN Reason: Pain, severe (8-10) Ibuprofen (Motrin Tab) 600 mg PO Q6 [facility] Last Admin: 10/01/17 05:15 Dose: 600 mg Ketorolac Tromethamine (Toradol) 30 mg IVP Q6 PRN PRN Reason: Pain, moderate (4-7) Ondansetron HCl (Zofran Inj) 4 mg IVP Q6 PRN PRN Reason: Nausea/Vomiting Pantoprazole Sodium (Protonix Inj) 40 mg IVP DAILY [facility] Last Admin: 09/30/17 08:48 Dose: 40 mg - Labs Labs: 09/30/17 07:25 10/01/17 05:20 PT 11.5 Seconds (9.8-13.1) 09/29/17 09:32 INR 1.0 (0.9-1.2) 09/29/17 09:32 APTT 31.9 Seconds (25.6-37.1) 09/29/17 09:32 - Constitutional Appears: Well, Non-toxic, No Acute Distress - Head Exam Head Exam: ATRAUMATIC, NORMAL INSPECTION, NORMOCEPHALIC - Eye Exam Eye Exam: EOMI, Normal appearance Pupil Exam: NORMAL ACCOMODATION, PERRL - ENT Exam ENT Exam: Mucous Membranes Moist, Normal Exam - Neck Exam Neck Exam: Full ROM, Normal Inspection. absent: Tenderness - Respiratory Exam Respiratory Exam: Clear to Ausculation Bilateral, NORMAL BREATHING PATTERN. absent: Decreased Breath Sounds, Rales, Rhonchi, Wheezes - Cardiovascular Exam Cardiovascular Exam: REGULAR RHYTHM, +S1, +S2 - GI/Abdominal Exam GI & Abdominal Exam: Distended, Firm, Guarding, Tenderness (Tenderness to palpation periumbilical region/surgical site) Additional comments: Multiple surgical scars Abdominal dressing in place - Extremities Exam Extremities Exam: Joint Swelling, Normal Capillary Refill, Pedal Edema, Tenderness. absent: Full ROM Additional comments: Non-pitting edema, hyperesthesia, increased warmth and pain on palpation to left elbow, left knee, left ankle, left hallux. Decreased ROM left elbow, left knee, left ankle, left hallux- however improving from yesterday - Neurological Exam Neurological Exam: Alert, Awake, Oriented x3 - Psychiatric Exam Psychiatric exam: Normal Affect, Normal Mood - Skin Skin Exam: Dry, Intact, Warm Assessment and Plan - Assessment and Plan (Free Text) Assessment: 57 yr old M admitted for partial vs early small bowel obstruction with PMHx of multiple abdominal surgeries for small bowel obstruction and hernia repair. 1. Partial vs early small bowel obstruction -Abd/Pelvis CT (09/28/17): diasteses of the anterior abdominal wall with herniation of bowel loops, evidence suspicious for partial vs early small bowel obstruction -Surgery consult: POD#2 (DOS: 09/29/17) exploratory laparotomy, lysis of adhesions, partial removal of Gortex mesh -Zofran PRN -Protonix 40mg IV QD -Pain control - Dilaudid 1-2 mg IV -Continue incentive spirometer every hour -Advance to liquid diet per surgery -PT/OT 2. HTN -Chronic, uncontrolled due to noncompliance with medication -Continue Carvedilol 6.25mg PO BID -Monitor BP 3. Acute on chronic gout - Acute flares noted to left elbow, left wrist, left knee, left ankle, left 1st MPJ, right 3rd digit - Continue home med: Allopurinol 300mg PO QD - Allergies colchicine, indomethacin - GI bleed - Stop Ibuprofen 600mg q6h - Change to Methylprednisolone 40mg IV QD + Vitamin C 1000mg PO QD + Vitamin A 20,000IU QD - surgery aware -Protonix 40mg IV QD 4. Lumbar Spondylosis -stable 5. Hx of atrial fibrillation - EKG (09/28/17): NSR - Not on anticoagulation as outpatient - Clinically unable to determine 6. DVT prophylaxis -Restart Lovenox 40mg SC QD -SCDs
--- NOTE | 2017-10-01 08:00 | CARD ---
APPROVED REPORT EKG Measurement Heart [id number] <Conclusion> Normal sinus rhythm Normal ECG
[2017-10-01] MEDS: Enoxaparin 40 mg Syringe SC SCH (08:20)
--- NOTE | 2017-10-01 11:50 | CP.PCM.PN ---
Subjective - Date & Time of Evaluation Date of Evaluation: 10/01/17 Time of Evaluation: 11:47 - Subjective Subjective: General Surgery Progress Note for Dr. Rosales This 57M was seen and examined this AM no acute events overnight. He is tolerating clears, passing flatus he reports that he has gotten out of bed with the walker. He is requesting a regular diet. Objective - Vital Signs/Intake and Output Vital Signs (last 24 hours): Temp Pulse Resp BP Pulse Ox 98.2 F 78 20 153/80 H 97 10/01/17 07:58 10/01/17 08:11 10/01/17 07:58 10/01/17 08:11 10/01/17 07:58 - Medications Medications: Current Medications Allopurinol (Zyloprim) 300 mg PO DAILY [facility] Last Admin: 10/01/17 08:12 Dose: 300 mg Carvedilol (Coreg) 6.25 mg PO Q12 [facility] Last Admin: 10/01/17 08:11 Dose: 6.25 mg Enoxaparin Sodium (Lovenox) 40 mg SC DAILY [facility] PRN Reason: Protocol Last Admin: 10/01/17 08:20 Dose: 40 mg Hydromorphone HCl (Dilaudid) 1 mg IVP Q3 PRN PRN Reason: Pain, moderate (4-7) Last Admin: 10/01/17 04:15 Dose: 1 mg Hydromorphone HCl (Dilaudid) 2 mg IVP Q4 PRN PRN Reason: Pain, severe (8-10) Last Admin: 10/01/17 11:14 Dose: 2 mg Ibuprofen (Motrin Tab) 600 mg PO Q6 [facility] Last Admin: 10/01/17 10:17 Dose: 600 mg Ondansetron HCl (Zofran Inj) 4 mg IVP Q6 PRN PRN Reason: Nausea/Vomiting Pantoprazole Sodium (Protonix Inj) 40 mg IVP DAILY [facility] Last Admin: 10/01/17 08:11 Dose: 40 mg - Labs Labs: 10/01/17 05:20 10/01/17 05:20 PT 11.5 Seconds (9.8-13.1) 09/29/17 09:32 INR 1.0 (0.9-1.2) 09/29/17 09:32 APTT 31.9 Seconds (25.6-37.1) 09/29/17 09:32 - Constitutional Appears: Non-toxic, No Acute Distress - Head Exam Head Exam: ATRAUMATIC, NORMOCEPHALIC - Eye Exam Eye Exam: EOMI, Normal appearance - ENT Exam ENT Exam: Mucous Membranes Moist, Normal Exam - Respiratory Exam Respiratory Exam: NORMAL BREATHING PATTERN - Cardiovascular Exam Cardiovascular Exam: +S1, +S2 - GI/Abdominal Exam GI & Abdominal Exam: Soft, Tenderness - Neurological Exam Neurological Exam: Alert, Awake - Psychiatric Exam Psychiatric exam: Normal Affect, Normal Mood - Skin Skin Exam: Dry, Intact Assessment and Plan - Assessment and Plan (Free Text) Assessment: This is a 57M POD#1 s/p incareated ventral hernia repair VSS Regular Diet OOB to chair D/W Dr. Bobby Elizabeth PGY2
[2017-10-01] MEDS ORDERED: methylPREDNISolone 40 MG in Sodium Chloride 0.9% 50 ML IVPB SCH ×2 (15:00→16:00)
[2017-10-01] MEDS ORDERED: MethylPREDNISolone 40 mg Vial IVP SCH (16:45)
[2017-10-01] MEDS ORDERED: VITAMIN A PO SCH (17:15)
[2017-10-01] MEDS: MethylPREDNISolone 40 mg Vial IVP SCH (17:58)
[2017-10-01] MEDS: VITAMIN A PO SCH (21:39)
[2017-10-02 07:11] LABS: HEMOGLOBIN 12.4 g/dL (12.0-18.0); MEAN CELL VOLUME 93.7 fl (80.0-94.0); MEAN CORPUSCULAR HGB CONC 33.1 g/dL (33.0-37.0); RBC 4.01 Mil/uL (4.40-5.90); RED CELL DISTRIBUTION WIDTH 13.4 % (11.5-14.5); WHITE BLOOD COUNT 13.1 K/uL (4.8-10.8)
[2017-10-02 07:37] LABS: BLOOD UREA NITROGEN 10 mg/dl (9-20); CALCIUM 9.8 mg/dL (8.4-10.2); GFR AFRICAN-AMERICAN > 60; GFR NON-AFRICAN AMERICAN > 60
[2017-10-02] MEDS: VITAMIN A PO SCH (08:16)
[2017-10-02] MEDS: Enoxaparin 40 mg Syringe SC SCH (08:17)
[2017-10-02] MEDS: MethylPREDNISolone 40 mg Vial IVP SCH (08:18)
--- NOTE | 2017-10-02 08:24 | CP.PCM.PN ---
Subjective - Date & Time of Evaluation Date of Evaluation: 10/02/17 Time of Evaluation: 08:16 - Subjective Subjective: General Surgery Progress Note for Dr. Rosales This patient was seen and examined this AM at bedside. No acute events overnight. Patient voiding, and passing flatus, no bowel movement yet. He is tolerating regular diet. He reports that is he is ambulating however his gouty pain is still an issue. Objective - Vital Signs/Intake and Output Vital Signs (last 24 hours): Temp Pulse Resp BP Pulse Ox 98.4 F 74 20 154/86 H 96 10/02/17 07:48 10/02/17 07:48 10/02/17 07:48 10/02/17 07:48 10/02/17 07:48 - Medications Medications: Current Medications Allopurinol (Zyloprim) 300 mg PO DAILY [facility] Last Admin: 10/01/17 08:12 Dose: 300 mg Ascorbic Acid (Vitamin C 500 Mg Tab) 1,000 mg PO DAILY [facility] Last Admin: 10/01/17 18:04 Dose: 1,000 mg Carvedilol (Coreg) 6.25 mg PO Q12 [facility] Last Admin: 10/01/17 20:24 Dose: 6.25 mg Enoxaparin Sodium (Lovenox) 40 mg SC DAILY [facility] PRN Reason: Protocol Last Admin: 10/01/17 08:20 Dose: 40 mg Home Med (Patient's Own Medication) 2 unit PO DAILY [facility] Last Admin: 10/01/17 21:39 Dose: 2 unit Hydromorphone HCl (Dilaudid) 1 mg IVP Q3 PRN PRN Reason: Pain, moderate (4-7) Last Admin: 10/01/17 19:00 Dose: 1 mg Hydromorphone HCl (Dilaudid) 2 mg IVP Q4 PRN PRN Reason: Pain, severe (8-10) Last Admin: 10/02/17 07:48 Dose: 2 mg Methylprednisolone (Solu-Medrol) 40 mg IVP DAILY [facility] Last Admin: 10/01/17 17:58 Dose: 40 mg Ondansetron HCl (Zofran Inj) 4 mg IVP Q6 PRN PRN Reason: Nausea/Vomiting Pantoprazole Sodium (Protonix Inj) 40 mg IVP DAILY [facility] Last Admin: 10/01/17 08:11 Dose: 40 mg - Labs Labs: 10/02/17 06:00 10/02/17 06:00 PT 11.5 Seconds (9.8-13.1) 09/29/17 09:32 INR 1.0 (0.9-1.2) 09/29/17 09:32 APTT 31.9 Seconds (25.6-37.1) 09/29/17 09:32 - Constitutional Appears: Non-toxic, No Acute Distress - Head Exam Head Exam: ATRAUMATIC, NORMOCEPHALIC - Eye Exam Eye Exam: EOMI - ENT Exam ENT Exam: Mucous Membranes Moist - Respiratory Exam Respiratory Exam: NORMAL BREATHING PATTERN - Cardiovascular Exam Cardiovascular Exam: +S1, +S2 - GI/Abdominal Exam GI & Abdominal Exam: Soft. absent: Firm, Guarding, Rigid, Tenderness Additional comments: Dressing with CDI - Neurological Exam Neurological Exam: Alert, Awake - Psychiatric Exam Psychiatric exam: Normal Affect, Normal Mood - Skin Skin Exam: Dry, Intact Assessment and Plan - Assessment and Plan (Free Text) Assessment: This is a 57M POD#2 s/p incareated ventral hernia repair VSS Continue Regular Diet Continue physical therapy Continue medical management per primary team D/W Dr. Bobby Elizabeth PGY2
[2017-10-02] MEDS ORDERED: MethylPREDNISolone 40 mg Vial IVP SCH (09:00)
--- NOTE | 2017-10-02 10:20 | CP.PCM.PN ---
Subjective - Date & Time of Evaluation Date of Evaluation: 10/02/17 Time of Evaluation: 07:14 - Subjective Subjective: Family Medicine 57 year old male seen and evaluated OOB in chair 3 days s/p ex lap, lysis of adhesions, partial removal of Gortex mesh. No acute events overnight. Reports improvement in periumbilical pain, well-controlled. No complaints with abdominal binder or to surgical site. Admits to passing flatus however still no BM. No issues with urinating. Tolerating regular diet. Endorses decreased pain in LUE and LLE from gouty attack and improvement in ROM. States he worked with physical therapy yesterday and was able to ambulate for a longer period of time. Denies SOB, chest pain, palpitations, headache, nausea, vomiting, dizziness, diarrhea. Objective - Vital Signs/Intake and Output Vital Signs (last 24 hours): Temp Pulse Resp BP Pulse Ox 98.4 F 74 20 154/86 H 96 10/02/17 07:48 10/02/17 08:16 10/02/17 07:48 10/02/17 08:16 10/02/17 07:48 - Medications Medications: Current Medications Allopurinol (Zyloprim) 300 mg PO DAILY [facility] Last Admin: 10/02/17 08:17 Dose: 300 mg Ascorbic Acid (Vitamin C 500 Mg Tab) 1,000 mg PO DAILY [facility] Last Admin: 10/02/17 08:17 Dose: 1,000 mg Carvedilol (Coreg) 6.25 mg PO Q12 [facility] Last Admin: 10/02/17 08:16 Dose: 6.25 mg Enoxaparin Sodium (Lovenox) 40 mg SC DAILY [facility] PRN Reason: Protocol Last Admin: 10/02/17 08:17 Dose: 40 mg Home Med (Patient's Own Medication) 2 unit PO DAILY [facility] Last Admin: 10/02/17 08:16 Dose: 2 unit Hydromorphone HCl (Dilaudid) 1 mg IVP Q3 PRN PRN Reason: Pain, moderate (4-7) Last Admin: 10/01/17 19:00 Dose: 1 mg Hydromorphone HCl (Dilaudid) 2 mg IVP Q4 PRN PRN Reason: Pain, severe (8-10) Last Admin: 10/02/17 07:48 Dose: 2 mg Methylprednisolone (Solu-Medrol) 40 mg IVP DAILY [facility] Last Admin: 10/02/17 08:18 Dose: 40 mg Ondansetron HCl (Zofran Inj) 4 mg IVP Q6 PRN PRN Reason: Nausea/Vomiting Pantoprazole Sodium (Protonix Inj) 40 mg IVP DAILY [facility] Last Admin: 10/02/17 08:17 Dose: 40 mg - Labs Labs: 10/02/17 06:00 10/02/17 06:00 PT 11.5 Seconds (9.8-13.1) 09/29/17 09:32 INR 1.0 (0.9-1.2) 09/29/17 09:32 APTT 31.9 Seconds (25.6-37.1) 09/29/17 09:32 - Constitutional Appears: Well, Non-toxic, No Acute Distress - Head Exam Head Exam: ATRAUMATIC, NORMAL INSPECTION, NORMOCEPHALIC - Eye Exam Eye Exam: EOMI, Normal appearance Pupil Exam: NORMAL ACCOMODATION, PERRL - ENT Exam ENT Exam: Mucous Membranes Moist, Normal Exam - Neck Exam Neck Exam: Full ROM, Normal Inspection. absent: Tenderness - Respiratory Exam Respiratory Exam: Clear to Ausculation Bilateral, NORMAL BREATHING PATTERN. absent: Rales, Rhonchi, Wheezes - Cardiovascular Exam Cardiovascular Exam: REGULAR RHYTHM, +S1, +S2 - GI/Abdominal Exam GI & Abdominal Exam: Distended, Firm, Tenderness (Decreased tenderness to palpation periumbilical region/surgical site) Additional comments: Surgical incision well-coapted with pily in place and no wound dehiscence noted - Extremities Exam Extremities Exam: Joint Swelling, Normal Capillary Refill, Pedal Edema, Tenderness. absent: Calf Tenderness Additional comments: Non-pitting edema, hyperesthesia, increased warmth and pain on palpation to left elbow, left knee, left ankle, left hallux. Decreased ROM left elbow, left knee, left ankle, left hallux- continues to improve - Back Exam Back Exam: NORMAL INSPECTION. absent: tenderness - Neurological Exam Neurological Exam: Alert, Awake, Oriented x3 - Psychiatric Exam Psychiatric exam: Normal Affect, Normal Mood - Skin Skin Exam: Dry, Intact, Warm Assessment and Plan - Assessment and Plan (Free Text) Assessment: 57 yr old M admitted for partial vs early small bowel obstruction with PMHx of multiple abdominal surgeries for small bowel obstruction and hernia repair. 1. Partial vs early small bowel obstruction -Abd/Pelvis CT (09/28/17): diasteses of the anterior abdominal wall with herniation of bowel loops, evidence suspicious for partial vs early small bowel obstruction -Surgery consult: POD#3 (DOS: 09/29/17) exploratory laparotomy, lysis of adhesions, partial removal of Gortex mesh -Zofran PRN -Protonix 40mg IV QD -Pain control - change to 1-2 tabs Percocet PO q4h prn pain -Continue incentive spirometer every hour -Regular diet -PT/OT - recommending safe discharge home 2. HTN -Chronic, uncontrolled due to noncompliance with medication -Hypertensive overnight and this AM - 154/86 -Continue Carvedilol 6.25mg PO BID -Start Lisinopril 10mg PO QD 3. Acute on chronic gout - Acute flares noted to left elbow, left wrist, left knee, left ankle, left 1st MPJ, right 3rd digit - Improving - Continue home med: Allopurinol 300mg PO QD - Allergies colchicine, indomethacin - GI bleed - Continue Methylprednisolone 40mg IV QD (d/c after last dose today) + Vitamin C 1000mg PO QD + Vitamin A 20,000IU QD - surgery aware, will monitor closely - Protonix 40mg IV QD 4. Constipation - Colace 100mg PO BID 5. Lumbar Spondylosis -stable 6. Hx of atrial fibrillation - EKG (09/28/17): NSR - Not on anticoagulation as outpatient - Clinically unable to determine 7. DVT prophylaxis -Lovenox 40mg SC QD -SCDs
[2017-10-02] MEDS ORDERED: Oxycodone/Acetaminophen 5/325 mg Tab PO PRN (11:33)
[2017-10-02] MEDS: Oxycodone/Acetaminophen 5/325 mg Tab PO PRN ×2 (13:35→19:55)
[2017-10-02] MEDS ORDERED: Morphine 4 MG/ML VIAL IVP ONE (15:43)
[2017-10-03] MEDS: Oxycodone/Acetaminophen 5/325 mg Tab PO PRN ×3 (00:20→08:41)
--- NOTE | 2017-10-03 07:01 | CP.PCM.PN ---
Subjective - Date & Time of Evaluation Date of Evaluation: 10/03/17 Time of Evaluation: 06:58 - Subjective Subjective: General Surgery: Dr Rosales Pt S&E. OOB and in chair. Looks comfortable. NAEO. No complaints. Gout pain significantly improved. Has been OOB and ambulating with walker and has had BM. Pt requesting to be discharged today, preferably before noon for his ride home. Denies n/v, f/c. tolerating diet Objective - Vital Signs/Intake and Output Vital Signs (last 24 hours): Temp Pulse Resp BP Pulse Ox 98.0 F 68 19 148/85 96 10/03/17 00:00 10/03/17 00:00 10/03/17 00:00 10/03/17 00:00 10/03/17 00:00 - Medications Medications: Current Medications Allopurinol (Zyloprim) 300 mg PO DAILY [facility] Last Admin: 10/02/17 08:17 Dose: 300 mg Ascorbic Acid (Vitamin C 500 Mg Tab) 1,000 mg PO DAILY [facility] Last Admin: 10/02/17 08:17 Dose: 1,000 mg Carvedilol (Coreg) 6.25 mg PO Q12 [facility] Last Admin: 10/02/17 20:03 Dose: 6.25 mg Docusate Sodium (Colace) 100 mg PO BID [facility] Last Admin: 10/02/17 16:07 Dose: 100 mg Enoxaparin Sodium (Lovenox) 40 mg SC DAILY [facility] PRN Reason: Protocol Last Admin: 10/02/17 08:17 Dose: 40 mg Home Med (Patient's Own Medication) 2 unit PO DAILY [facility] Last Admin: 10/02/17 08:16 Dose: 2 unit Lisinopril (Zestril) 10 mg PO DAILY [facility] Ondansetron HCl (Zofran Inj) 4 mg IVP Q6 PRN PRN Reason: Nausea/Vomiting Oxycodone/Acetaminophen (Percocet 5/325 Mg Tab) 1 tab PO Q4 PRN PRN Reason: Pain, moderate (4-7) Stop: 10/05/17 11:34 Oxycodone/Acetaminophen (Percocet 5/325 Mg Tab) 2 tab PO Q4 PRN PRN Reason: Pain, severe (8-10) Stop: 10/05/17 11:34 Last Admin: 10/03/17 04:15 Dose: 2 tab Pantoprazole Sodium (Protonix Inj) 40 mg IVP DAILY [facility] Last Admin: 10/02/17 08:17 Dose: 40 mg - Labs Labs: 10/02/17 06:00 10/02/17 06:00 PT 11.5 Seconds (9.8-13.1) 09/29/17 09:32 INR 1.0 (0.9-1.2) 09/29/17 09:32 APTT 31.9 Seconds (25.6-37.1) 09/29/17 09:32 - Constitutional Appears: Non-toxic, No Acute Distress - Head Exam Head Exam: NORMAL INSPECTION - Eye Exam Eye Exam: Normal appearance - ENT Exam ENT Exam: Mucous Membranes Moist - Respiratory Exam Respiratory Exam: absent: Respiratory Distress - Cardiovascular Exam Cardiovascular Exam: REGULAR RHYTHM. absent: Tachycardia - GI/Abdominal Exam GI & Abdominal Exam: Soft. absent: Distended, Firm, Tenderness Additional comments: incision c/d/i - Neurological Exam Neurological Exam: Alert, Awake, Oriented x3 - Psychiatric Exam Psychiatric exam: Normal Affect, Normal Mood - Skin Skin Exam: Normal Color, Warm Assessment and Plan - Assessment and Plan (Free Text) Assessment: 57M s/p ventral hernia repair Plan: pt doing excellent clear for discharge all post op instructions provided f/u in clinic in 1 week d/w Dr Bobby August, PGY3
[2017-10-03 07:48] LABS: HEMOGLOBIN 12.6 g/dL (12.0-18.0); MEAN CELL VOLUME 94.8 fl (80.0-94.0); MEAN CORPUSCULAR HEMOGLOBIN 31.1 pg (27.0-31.0); MEAN CORPUSCULAR HGB CONC 32.8 g/dL (33.0-37.0); RBC 4.06 Mil/uL (4.40-5.90); RED CELL DISTRIBUTION WIDTH 13.5 % (11.5-14.5); WHITE BLOOD COUNT 15.7 K/uL (4.8-10.8)
[2017-10-03 08:04] LABS: BLOOD UREA NITROGEN 16 mg/dl (9-20); CALCIUM 9.8 mg/dL (8.4-10.2); GFR AFRICAN-AMERICAN > 60; GFR NON-AFRICAN AMERICAN > 60
[2017-10-03 08:33] VITALS: BP 158/92; PULSE 57; RESP 20; TEMP 98.1; O2SAT 97
[2017-10-03] MEDS: VITAMIN A PO SCH (08:42)
[2017-10-03] MEDS: Enoxaparin 40 mg Syringe SC SCH (08:43)
--- NOTE | 2017-10-03 09:29 | CP.PCM.DIS ---
Provider - Provider Date of Admission: 09/28/17 02:49 Attending physician: Nancy Pickard MD Primary care physician: [facility] Consults: Surgery - Dr. Rosales Time Spent in preparation of Discharge (in minutes): 30 Hospital Course - Lab Results Lab Results: Most Recent Lab Values WBC 15.7 K/uL (4.8-10.8) H 10/03/17 06:21 RBC 4.06 Mil/uL (4.40-5.90) L 10/03/17 06:21 Hgb 12.6 g/dL (12.0-18.0) 10/03/17 06:21 Hct 38.5 % (35.0-51.0) 10/03/17 06:21 MCV 94.8 fl (80.0-94.0) H 10/03/17 06:21 MCH 31.1 pg (27.0-31.0) H 10/03/17 06:21 MCHC 32.8 g/dL (33.0-37.0) L 10/03/17 06:21 RDW 13.5 % (11.5-14.5) 10/03/17 06:21 Plt Count 391 K/uL (130-400) D 10/03/17 06:21 MPV 7.8 fl (7.2-11.7) 09/29/17 06:20 Neut % (Auto) 80.9 % (50.0-75.0) H 09/29/17 06:20 Lymph % (Auto) 10.2 % (20.0-40.0) L 09/29/17 06:20 [place] % (Auto) 8.1 % (0.0-10.0) 09/29/17 06:20 Eos % (Auto) 0.5 % (0.0-4.0) 09/29/17 06:20 Baso % (Auto) 0.3 % (0.0-2.0) 09/29/17 06:20 Neut # 11.1 K/uL (1.8-7.0) H 09/29/17 06:20 Lymph # 1.4 K/uL (1.0-4.3) 09/29/17 06:20 [place] # 1.1 K/uL (0.0-0.8) H 09/29/17 06:20 Eos # 0.1 K/uL (0.0-0.7) 09/29/17 06:20 Baso # 0.0 K/uL (0.0-0.2) 09/29/17 06:20 PT 11.5 Seconds (9.8-13.1) 09/29/17 09:32 INR 1.0 (0.9-1.2) 09/29/17 09:32 APTT 31.9 Seconds (25.6-37.1) 09/29/17 09:32 Sodium 143 mmol/l (132-148) 10/03/17 06:21 Potassium 4.3 MMOL/L (3.6-5.0) 10/03/17 06:21 Chloride 102 mmol/L (98-107) 10/03/17 06:21 Carbon Dioxide 31 mmol/L (22-30) H 10/03/17 06:21 Anion Gap 14 (10-20) 10/03/17 06:21 BUN 16 mg/dl (9-20) 10/03/17 06:21 Creatinine 0.7 mg/dl (0.8-1.5) L 10/03/17 06:21 Est GFR ( Amer) > 60 10/03/17 06:21 Est GFR (Non-Af Amer) > 60 10/03/17 06:21 Random Glucose 114 mg/dL (75-110) H 10/03/17 06:21 Lactic Acid 1.9 MMOL/L (0.7-2.1) 09/28/17 00:41 Uric Acid 9.2 mg/Dl (3.5-8.5) H 09/30/17 10:14 Calcium 9.8 mg/dL (8.4-10.2) 10/03/17 06:21 Total Bilirubin 0.9 mg/dl (0.2-1.3) 09/29/17 06:20 AST 18 U/L (17-59) 09/29/17 06:20 ALT 33 U/L (21-72) 09/29/17 06:20 Alkaline Phosphatase 73 U/L (38-126) 09/29/17 06:20 Total Protein 7.4 G/DL (6.3-8.2) 09/29/17 06:20 Albumin 3.9 g/dL (3.5-5.0) 09/29/17 06:20 Globulin 3.4 gm/dL (2.2-3.9) 09/29/17 06:20 Albumin/Globulin Ratio 1.1 (1.0-2.1) 09/29/17 06:20 Lipase 68 U/L (23-300) 09/28/17 00:42 Urine Color Yellow (YELLOW) 09/28/17 00:54 Urine Clarity Clear (Clear) 09/28/17 00:54 Urine pH 6.0 (5.0-8.0) 09/28/17 00:54 Ur Specific [place] 1.012 (1.003-1.030) 09/28/17 00:54 Urine Protein Negative mg/dL (NEGATIVE) 09/28/17 00:54 Urine Glucose (UA) Neg mg/dL (Normal) 09/28/17 00:54 Urine Ketones Negative mg/dL (NEGATIVE) 09/28/17 00:54 Urine Blood Negative (NEGATIVE) 09/28/17 00:54 Urine Nitrate Negative (NEGATIVE) 09/28/17 00:54 Urine Bilirubin Negative (NEGATIVE) 09/28/17 00:54 Urine Urobilinogen 0.2-1.0 mg/dL (0.2-1.0) 09/28/17 00:54 Ur Leukocyte Esterase Neg Suzanne/uL (Negative) 09/28/17 00:54 Urine RBC (Auto) 2 /hpf (0-3) 09/28/17 00:54 Urine Microscopic WBC 1 /hpf (0-5) 09/28/17 00:54 Urine Opiates Screen Positive (NEGATIVE) H 09/28/17 00:54 Urine Methadone Screen Negative (NEGATIVE) 09/28/17 00:54 Ur Barbiturates Screen Negative (NEGATIVE) 09/28/17 00:54 Ur Phencyclidine Scrn Negative (NEGATIVE) 09/28/17 00:54 Ur Amphetamines Screen Negative (NEGATIVE) 09/28/17 00:54 U Benzodiazepines Scrn Negative (NEGATIVE) 09/28/17 00:54 U Oth Cocaine Metabols Negative (NEGATIVE) 09/28/17 00:54 U Cannabinoids Screen Negative (NEGATIVE) 09/28/17 00:54 Alcohol, Quantitative < 10 mg/dl (0-10) 09/28/17 00:42 Blood Type A POSITIVE 09/29/17 09:32 Antibody Screen Negative 09/29/17 09:32 Crossmatch See Detail 09/29/17 09:32 BBK History Checked Patient has bt 09/29/17 09:32 - Hospital Course Hospital Course: 57 year old male patient PMHx multiple abdominal surgeries, uncontrolled HTN from non-compliance with medications, gout, lumbar spondylosis, and hx of atrial fibrillation admitted for small bowel obstruction. Surgery consulted, and patient was taken to OR for exploratory laparotomy, lysis of adhesions, partial removal of Gortex mesh, with unremarkable events to abdomen. During hospital course patient developed acute on chronic gout flare to left elbow, left wrist, left knee, left ankle, left 1st MPJ, right 3rd digit. Patient's home med Allopurinol 300mg PO QD was continued, and patient was started on Methylprednisolone 40mg IV QD + Vitamin C 1000mg PO QD + Vitamin A 20,000IU QD for acute gout symptoms. Patient will be sent home with Medrol dosepak and is advised to continue Vitamin C and Vitamin A regimen. Hypertension was controlled via increase in home med Coreg to 6.25mg PO BID and addition of Lisinopril 10mg PO QD. Patient advised to follow up in [facility] with Dr. Renteria @ 11:00AM, and is to follow up in surgery clinic within 1 week of discharge. Patient stable for d/c home. Discharge Exam - Head Exam Head Exam: NORMAL INSPECTION, NORMOCEPHALIC - Eye Exam Eye Exam: EOMI, Normal appearance Pupil Exam: NORMAL ACCOMODATION, PERRL - ENT Exam ENT Exam: Mucous Membranes Moist - Neck Exam Neck exam: Full Rom, Normal Inspection - Respiratory Exam Respiratory Exam: Clear to PA & Lateral, NORMAL BREATHING PATTERN, UNREMARKABLE. absent: Rales, Rhonchi, Wheezes - Cardiovascular Exam Cardiovascular Exam: REGULAR RHYTHM, +S1, +S2 - GI/Abdominal Exam GI & Abdominal Exam: Distended, Firm, Normal Bowel Sounds, Tenderness Additional comments: Surgical incision well-coapted with pily in place and no wound dehiscence noted - Extremities Exam Extremities exam: joint swelling (decreased), normal capillary refill, pedal edema (decreased), tenderness (decreased), pedal pulses present Additional comments: Non-pitting edema, hyperesthesia, increased warmth and pain on palpation to left elbow, left knee, left ankle, left hallux. Improved ROM left elbow, left knee, left ankle, left hallux. - Back Exam Back exam: NORMAL INSPECTION. absent: tenderness - Neurological Exam Neurological exam: Alert, Oriented x3 - Psychiatric Exam Psychiatric exam: Normal Affect, Normal Mood - Skin Skin Exam: Dry, Intact, Normal Color, Warm Discharge Plan - Discharge Medications Prescriptions: Allopurinol [Zyloprim] 300 mg PO DAILY 30 Days #30 tab Allopurinol [Zyloprim] 300 mg PO DAILY #30 tab Ascorbic Acid [Vitamin C 500 mg Tab] 1,000 mg PO DAILY 30 Days #30 tab Carvedilol [Coreg] 6.25 mg PO Q12 30 Days #30 tab Docusate [Colace] 100 mg PO BID 30 Days #30 cap Lisinopril [Zestril] 10 mg PO DAILY 30 Days #30 tab oxyCODONE/Acetaminophen [Percocet 5/325 mg Tab] 2 tab PO Q4 PRN #18 tab PRN Reason: Pain, Severe (8-10) Vitamin A 20,000 iu PO DAILY 30 Days #20 sgl - Follow Up Plan Condition: FAIR Disposition: HOME/ ROUTINE Patient education suggested?: Yes Instructions: Low Purine Diet (DC), Gout (DC), Exploratory Laparotomy (DC), Ventral Hernia (DC), Hypertension (DC), Bowel Obstruction (DC) Additional Instructions: Follow up [facility] with Dr. Larson 10/09/17 @ 11:00AM, arrive by 10:30 Follow up in surgery clinic within 1 week of discharge, schedule appt Referrals: Latrice Rosales MD [Staff Provider] - Neyda Edwards MD [Staff Provider] -
== END 2017-10-03 11:00 | disposition home or self-care (01) | DRG 355 ==
LOC: H.ER 23:57 → H.ERHOLD 09-28 02:49 → H.MEDSURG1 09-28 04:10
PROVIDERS: ADMIT Family Medicine Geriatric Medicine; ATTEND Family Medicine Geriatric Medicine
PROC: 3E0234Z Introduction of Serum, Toxoid and Vaccine into Muscle, Percutaneous Approach (ICD-10-PCS; 2017-09-28)
PROC: 0WPF0JZ Removal of Synthetic Substitute from Abdominal Wall, Open Approach (ICD-10-PCS; 2017-09-29)
PROC: 0WQF0ZZ Repair Abdominal Wall, Open Approach (ICD-10-PCS; principal; 2017-09-29 11:00)
DX: K43.0 Incisional hernia with obstruction, without gangrene (principal); I48.91 Unspecified atrial fibrillation; F17.200 Nicotine dependence, unspecified, uncomplicated; M47.816 Spondylosis without myelopathy or radiculopathy, lumbar region; Z91.14 Patient's other noncompliance with medication regimen; G89.29 Other chronic pain; Z23 Encounter for immunization; D64.9 Anemia, unspecified; M19.90 Unspecified osteoarthritis, unspecified site; M06.9 Rheumatoid arthritis, unspecified; I10 Essential (primary) hypertension; M1A.9XX0 Chronic gout, unspecified, without tophus (tophi); K59.00 Constipation, unspecified

== ENCOUNTER 2017-11-20 21:03 | Observation (INO) | payer MEDICARE ==
[2017-11-20 21:03] VITALS: BMI 33.0
[2017-11-20] MEDS ORDERED: Iohexol 240 (50 ml) PO ONE (21:30)
[2017-11-20] MEDS ORDERED: Sodium Chloride 0.9% 1,000 ML IV STA (21:31)
[2017-11-20] MEDS ORDERED: Iohexol 240 (50 ml) ONE (21:38)
[2017-11-20] MEDS ORDERED: Morphine 4 MG/ML VIAL ONE (21:39)
[2017-11-20 22:20] LABS: BASO % 0.4 % (0.0-2.0); EOS # 0.1 K/uL (0.0-0.7); EOS % 1.4 % (0.0-4.0); LYMPH # 2.4 K/uL (1.0-4.3); LYMPH % 25.2 % (20.0-40.0); MEAN CELL VOLUME 94.4 fl (80.0-94.0); MEAN CORPUSCULAR HEMOGLOBIN 31.8 pg (27.0-31.0); MEAN CORPUSCULAR HGB CONC 33.7 g/dL (33.0-37.0); MEAN PLATELET VOLUME 8.1 fl (7.2-11.7); MONO # 0.7 K/uL (0.0-0.8); MONO % 7.6 % (0.0-10.0); NEUT # 6.2 K/uL (1.8-7.0); NEUT % 65.4 % (50.0-75.0); NRBC % 0.1 % (0.0-0.0); RBC 4.4 Mil/uL (4.40-5.90); RED CELL DISTRIBUTION WIDTH 13.2 % (11.5-14.5); WHITE BLOOD COUNT 9.5 K/uL (4.8-10.8)
[2017-11-20 22:28] LABS: ALB/GLOB RATIO 1.2 (1.0-2.1); ALBUMIN 4.5 g/dL (3.5-5.0); ALT/SGPT 25 U/L (21-72); AST/SGOT 21 U/L (17-59); BLOOD UREA NITROGEN 9 mg/dl (9-20); CALCIUM 9.7 mg/dL (8.4-10.2); GFR AFRICAN-AMERICAN > 60; GFR NON-AFRICAN AMERICAN > 60; LIPASE 47 U/L (23-300)
[2017-11-20] MEDS ORDERED: Potassium CL 10 MEQ/50 ML 50 ML IVPB ONE (22:30)
--- NOTE | 2017-11-20 23:10 | ED PDOC ---
HPI: Abdomen Time Seen by Provider: 11/20/17 21:15 Chief Complaint (Nursing): Abdominal Pain Chief Complaint (Provider): Abdominal Pain History Per: Patient History/Exam Limitations: no limitations Onset/Duration Of Symptoms: Days (x10) Current Symptoms Are (Timing): Still Present Additional Complaint(s): 57 year old male with a past medical history of HTN, gout, chronic back pain, and multiple abdominal surgeries, including an exploratory laparotomy performed by Dr. Rosales on 09/30/17, who presents to the ED complaining of abdominal pain and distension x10 days. Patient states pain is worse over the past 2 days and diffuse throughout the middle of abdomen. Also noticed distension of his abdomen over the last couple of days. Reports no vomiting, diarrhea. Also reports last bowel movement was today. Denies fever or urinary problems. PMD: [facility] Past Medical History Reviewed: Historical Data, Nursing Documentation, Vital Signs Vital Signs: Last Vital Signs Temp 97.4 F L 11/21/17 07:33 Pulse 63 11/21/17 07:33 Resp 19 11/21/17 07:33 BP 142/85 11/21/17 07:33 Pulse Ox 97 11/21/17 07:33 - Medical History PMH: Anemia, Arthritis, Atrial Fibrillation, Back Problems, HTN, Obstructive Bowel, Rheumatoid Arthritis, Chronic Pain (bilateral legs) Denies: Chronic Kidney Disease - Surgical History Surgical History: Hernia Repair (ventral) Other surgeries: Ex lap - Family History Family History: States: Unknown Family Hx - Immunization History Hx Tetanus Toxoid Vaccination: No Hx Influenza Vaccination: No Hx Pneumococcal Vaccination: No - Home Medications Home Medications: Ambulatory Orders Medication Instructions Recorded Vitamin A 20,000 iu PO DAILY 30 Days #20 sgl 10/01/17 Allopurinol [Zyloprim] 300 mg PO DAILY #30 tab 10/03/17 Allopurinol [Zyloprim] 300 mg PO DAILY 30 Days #30 tab 10/03/17 Ascorbic Acid [Vitamin C 500 mg 1,000 mg PO DAILY 30 Days #30 tab 10/03/17 Tab] Carvedilol [Coreg] 6.25 mg PO Q12 30 Days #30 tab 10/03/17 Docusate [Colace] 100 mg PO BID 30 Days #30 cap 10/03/17 Lisinopril [Zestril] 10 mg PO DAILY 30 Days #30 tab 10/03/17 oxyCODONE/Acetaminophen [Percocet 2 tab PO Q4 PRN #18 tab 10/03/17 5/325 mg Tab] - Allergies Allergies/Adverse Reactions: Allergies Allergy/AdvReac Type Severity Reaction Status Date / Time colchicine AdvReac Severe NAUSEA Verified 11/20/17 21:08 indomethacin AdvReac Severe NAUSEA Verified 11/20/17 21:08 Review of Systems ROS Statement: Except As Marked, All Systems Reviewed And Found Negative Constitutional: Negative for: Fever Gastrointestinal: Positive for: Abdominal Pain Genitourinary Male: Negative for: Dysuria, Frequency, Incontinence Physical Exam - Reviewed Nursing Documentation Reviewed: Yes - Physical Exam Appears: Positive for: Non-toxic, No Acute Distress, Uncomfortable Head Exam: Positive for: ATRAUMATIC, NORMAL INSPECTION, NORMOCEPHALIC Skin: Positive for: Normal Color, Warm, Dry. Negative for: Rash Eye Exam: Positive for: EOMI, Normal appearance, PERRL Neck: Positive for: Normal, Painless ROM, Supple Cardiovascular/Chest: Positive for: Regular Rate, Rhythm. Negative for: Murmur Respiratory: Positive for: Normal Breath Sounds. Negative for: Respiratory Distress Gastrointestinal/Abdominal: Positive for: Soft, Tenderness (diffuse), Distended , Other (multiple scars) Back: Positive for: Normal Inspection. Negative for: L CVA Tenderness, R CVA Tenderness, Vertebral Tenderness Extremity: Positive for: Normal ROM. Negative for: Pedal Edema, Deformity Neurologic/Psych: Positive for: Alert, Oriented (x3). Negative for: Motor/ Sensory Deficits - Laboratory Results Result Diagrams: 11/20/17 22:13 11/21/17 06:35 - ECG O2 Sat by Pulse Oximetry: 98 (RA) Pulse Ox Interpretation: Normal Medical Decision Making Medical Decision Making: Time: 21:30 Initial Impression: Abdominal pain and distension. Differentials diagnoses include, but are not limited to small bowel obstruction, volvulus, hepatic ulcer disease, pancreatitis, and other pathologies will be considered. Initial Plan: --CT Abdomen and Pelvis --CMP --Lipase --CBC w/ differential --Potassium CL 50ml IVPB --Morphine 4 mg IVP --Fluid bolus --Omnipaque 50 ml PO --Zofran 4 mg IVP --Reevaluation Scribe Attestation: Documented by Aron Palmer, acting as a scribe for Rm French MD. Provider Scribe Attestation: All medical record entries made by the Scribe were at my direction and personally dictated by me. I have reviewed the chart and agree that the record accurately reflects my personal performance of the history, physical exam, medical decision making, and the department course for this patient. I have also personally directed, reviewed, and agree with the discharge instructions and disposition. Disposition - Clinical Impression Clinical Impression: Abdominal pain - Patient ED Disposition Is Patient to be Admitted: Transfer of Care Counseled Patient/Family Regarding: Studies Performed, Diagnosis - Disposition Disposition: Transfer of Care Disposition Time: 23:59 Condition: STABLE Patient Signed Over To: Lauri Cali Handoff Comments: Pending CT abdomen
[2017-11-20] MEDS ORDERED: Iohexol 300 100 ML IJ ONE (23:30)
[2017-11-20] MEDS ORDERED: Sodium Chloride 0.9% 100 ML ONE (23:31)
--- NOTE | 2017-11-21 00:14 | CT ---
EXAM: CT Abdomen and Pelvis With Intravenous Contrast CLINICAL HISTORY: 57 years old, male; Pain; Abdominal pain; Generalized; Prior surgery; Surgery date: 1-6 months; Surgery type: Abdominal hernia surgery TECHNIQUE: Axial computed tomography images of the abdomen and pelvis with intravenous contrast. All CT scans at this facility use one or more dose reduction techniques, viz.: automated exposure control; ma/kV adjustment per patient size (including targeted exams where dose is matched to indication; i.e. head); or iterative reconstruction technique. Coronal and sagittal reformatted images were created and reviewed. CONTRAST: 95 mL of [id number] administered intravenously. COMPARISON: CT - ABD PELVIS IV CONTRAST ONLY 2017-09-28 01:48 FINDINGS: Lower thorax: Left lung base atelectasis there is fibrosis. ABDOMEN: Liver: Unremarkable. No mass. Gallbladder and bile ducts: Unremarkable. No calcified stones. No ductal dilation. Pancreas: Unremarkable. No mass. No ductal dilation. Spleen: Unremarkable. No splenomegaly. Adrenals: Unremarkable. No mass. Kidneys and ureters: Unremarkable. No solid mass. No hydronephrosis. Stomach and bowel: Mild diverticulosis is present in the sigmoid and descending colon. There is no evidence of diverticulitis. Again demonstrated is diastases of the anterior abdominal wall musculature with protrusion of the small and large bowel. No obstruction. Appendix: The appendix is mildly thickened measuring 8 mm, unchanged. There is no evidence of adjacent inflammatory stranding to suggest acute appendicitis. PELVIS: Bladder: Unremarkable. No mass. Reproductive: Unremarkable as visualized. ABDOMEN and PELVIS: Intraperitoneal space: Unremarkable. No free air. No significant fluid collection. Bones/joints: Degenerative changes in the thoracic and lumbar spine. No acute fracture. No dislocation. Vasculature: The aorta demonstrates mild atherosclerotic calcification. No abdominal aortic aneurysm. Lymph nodes: Unremarkable. No enlarged lymph nodes. IMPRESSION: No acute findings. Stable diastases of the abdominal wall. No bowel obstruction. Diverticulosis without acute diverticulitis.
--- NOTE | 2017-11-21 00:55 | ED PDOC ---
- Laboratory Results Result Diagrams: 11/20/17 22:13 11/20/17 22:13 - ECG O2 Sat by Pulse Oximetry: 98 (RA) Pulse Ox Interpretation: Normal Medical Decision Making Medical Decision Making: Time: 00:00 Patient signed out to me by Dr. Nguyen pending CT scan and reevaluation. Time: 00:57 EXAM: CT Abdomen and Pelvis With Intravenous Contrast FINDINGS: Lower thorax: Left lung base atelectasis there is fibrosis. ABDOMEN: Liver: Unremarkable. No mass. Gallbladder and bile ducts: Unremarkable. No calcified stones. No ductal dilation. Pancreas: Unremarkable. No mass. No ductal dilation. Spleen: Unremarkable. No splenomegaly. Adrenals: Unremarkable. No mass. Kidneys and ureters: Unremarkable. No solid mass. No hydronephrosis. Stomach and bowel: Mild diverticulosis is present in the sigmoid and descending colon. There is no evidence of diverticulitis. Again demonstrated is diastases of the anterior abdominal wall musculature with protrusion of the small and large bowel. No obstruction. Appendix: The appendix is mildly thickened measuring 8 mm, unchanged. There is no evidence of adjacent inflammatory stranding to suggest acute appendicitis. PELVIS: Bladder: Unremarkable. No mass. Reproductive: Unremarkable as visualized. ABDOMEN and PELVIS: Intraperitoneal space: Unremarkable. No free air. No significant fluid collection. Bones/joints: Degenerative changes in the thoracic and lumbar spine. No acute fracture. No dislocation. Vasculature: The aorta demonstrates mild atherosclerotic calcification. No abdominal aortic aneurysm. Lymph nodes: Unremarkable. No enlarged lymph nodes. IMPRESSION: No acute findings. Stable diastases of the abdominal wall. No bowel obstruction. Diverticulosis without acute diverticulitis. Time: 00:57 Patient will be hospitalized as observation status. Discussed with Dr. Loren AGUDELO ----- Documented by Raquel Bolivar acting as a scribe for Lauri Cali MD. All medical record entries made by the Scribe were at my direction and personally dictated by me. I have reviewed the chart and agree that the record accurately reflects my personal performance of the history, physical exam, medical decision making, and the department course for this patient. I have also personally directed, reviewed, and agree with the discharge instructions and disposition. Disposition - Clinical Impression Clinical Impression: Abdominal pain - POA Present On Arrival: None - Disposition Disposition: Hospitalized as Observation Patient Disposition Time: 00:22
--- NOTE | 2017-11-21 01:03 | CP.PCM.HP ---
History of Present Illness - History of Present Illness History of Present Illness: "my stomach has been hurting bad for 2 weeks" 57 yr old male with a PMHx remarkable for multiple abdominal surgeries for small bowel obstruction and hernia repair, lumbar spondylosis with chronic pain , HTN, A-fib, gout, perforated GI ulcer, and osteoarthritis presented to ED with complaint of worsening abdominal pain for two weeks. Denies any inciting or triggering event. Pain started as 1-2/10 around his incision site, but in the past 2-3 days the pain has worsened to approx 10/10. It is a "dull achy pain ", located between the epigastrium and lee-umbilical area, without radiation, that is constant. No alleviating factors. Exacerbated by straining or lying totally supine. He reports he had to sleep in a chair the last two nights. Pain is associated with nausea. He has been tolerating PO intake of fluids and soups/ soft foods without difficulty. He denies any vomiting or diarrhea. Last BM was today, looser than normal but otherwise unremarkable. He denies any fever/chills , headaches, changes in vision SOB/chest pain/palpitations, V/D/C, melena, hematochezia, urinary symptoms, numbness/tingling/weakness. PMD: none, pt has never followed up in clinic Specialists: Latrice Hylton, last visit 3 weeks ago for wound check. Dr. Edwards-pain management PMHx: small bowel obstruction and hernia repair, lumbar spondylosis with chronic pain, HTN, A-fib, gout, perforated GI ulcer, osteoarthritis PSurgHx: multiple abdominal surgeries for small bowel obstruction and hernia repair, explorative lapartomy 10/17 to SBO 09/2017 ALL: colchicine and indomethacin (internal bleeding) FamilyHx: mother at 74 for [place] SocialHx: social ETOH, tobacco 1/2 PPD for 36 yrs, denies drugs Medications: taking percocet 5/325 mg 1 tab PO Q6 PRN pain, taking allopurinol 300mg PO QD; Not taking: Lisinopril 10mg QD, Carvedilol 3.125mg PO BID, Eliquis 5mg PO BID Next of Kin: Kia Connors, , [phone] Code Status: full code ED course: Vitals on Presentation: T: 98.1 F, HR 125, BP: 185/97, RR: 18, POX: 98% RA Labs CBC: wnl CMP: hypokalemia at 3.4 Imaging Abd/pelvis CT: no signs of bowel obstruction, diverticulosis w/o diverticulitis as per [facility] reports Meds Morphine 4mg, 2mg Zofran 4mg 1 L NS K run 10meq x1 Present on Admission - Present on Admission Any Indicators Present on Admission: No History of DVT/PE: No History of Uncontrolled Diabetes: No Review of Systems - Constitutional Constitutional: absent: As Per HPI, Anorexia, Chills, Daytime Sleepiness, Excessive Sweating, Fatigue, Fever, Frequent Falls, Headache, Increased Appetite , Lethargy, Malaise, Night Sweats, Snoring, Sleep Apnea, Weight Gain, Weight Loss, Weakness, Other - EENT Eyes: absent: As Per HPI, Blind Spots, Blurred Vision, Change in Vision, Decreased Night Vision, Diplopia, Discharge, Dry Eye, Exophthalmos, Floaters, Irritation, Itchy Eyes, Loss of Peripheral Vision, Pain, Photophobia, Requires Corrective Lenses, Sees Flashes, Spots in Vision, Tunnel Vision, Other Visual Disturbances, Loss of Vision, Other Ears: absent: As Per HPI, Decreased Hearing, Ear Discharge, Ear Pain, Tinnitus, Abnormal Hearing, Disequilibrium, Dizziness, Other Nose/Mouth/Throat: absent: As Per HPI, Epistaxis, Nasal Congestion, Nasal Discharge, Nasal Obstruction, Nasal Trauma, Nose Pain, Post Nasal Drip, Sinus Pain, Sinus Pressure, Bleeding Gums, Change in Voice, Dental Pain, Dry Mouth, Dysphagia, Halitosis, Hoarsness, Lip Swelling, Mouth Lesions, Mouth Pain, Odynophagia, Sore Throat, Throat Swelling, Tongue Swelling, Facial Pain, Neck Pain, Neck Mass, Other - Cardiovascular Cardiovascular: absent: As Per HPI, Acrocyanosis, Chest Pain, Chest Pain at Rest , Chest Pain with Activity, Claudication, Diaphoresis, Dyspnea, Dyspnea on Exertion, Edema, Irregular Heart Rhythm, Pain Radiating to Arm/Neck/Jaw, Leg Edema, Leg Ulcers, Lightheadedness, Orthopnea, Palpitations, Paroxysmal Nocturnal Dyspnea, Pedal Edema, Radiating Pain, Rapid Heart Rate, Slow Heart Rate, Syncope, Other - Respiratory Respiratory: absent: As Per HPI, Cough, Dyspnea, Hemoptysis, Dyspnea on Exertion , Wheezing, Snoring, Stridor, Pain on Inspiration, Chest Congestion, Excessive Mucous Production, Change in Mucous Color, Pain with Coughing, Other - Gastrointestinal Gastrointestinal: Abdominal Pain, Bloating, Nausea. absent: As Per HPI, Belching, Change in Bowel Habits, Change in Stool Character, Coffee Ground Emesis, Constipation, Cramping, Diarrhea, Dyspepsia, Dysphagia, Early Satiety, Excessive Flatus, Fecal Incontinence, Heartburn, Hematemesis, Hematochezia, Loose Stools, Melena, Odynophagia, Temesmus, Vomiting, Other - Genitourinary Genitourinary: absent: As Per HPI, Change in Urinary Stream, Difficulty Urinating, Dysuria, Flank Pain, Hematuria, Pyuria, Nocturia, Urinary Incontinence, Urinary Frequency, Urinary Hesitance, Urinary Urgency, Voiding Freq/Small Amts, Freq UTI, Hx Renal/Bladder Calculi, Hx /Renal Surgery, Bladder Distension, Other - Musculoskeletal Musculoskeletal: absent: As Per HPI, Abnormal Gait, Arthralgias, Atrophy, Back Pain, Deformity, Joint Swelling, Limited Range of Motion, Loss of Height, Muscle Cramps, Muscle Weakness, Myalgias, Neck Pain, Numbness, Radiating Pain into Limb, Stiffness, Tingling, Other - Integumentary Integumentary: absent: As Per HPI, Acne, Alopecia, Bleeding Lesions, Change in Hair, Change in Nails, Change in Pigmentation, Changing Lesions, Dry Skin, Erythema, Furuncle, Hirsutism, Lesions, New Lesions, Non-Healing Lesions, Photosensitivity, Pruritus, Rash, Skin Pain, Skin Ulcer, Sores, Striae, Swelling , Unusual Bruising, Wounds, Jaundice, Other - Neurological Neurological: absent: As Per HPI, Abnormal Gait, Abnormal Hearing, Abnormal Movements, Abnormal Speech, Behavioral Changes, Burning Sensations, Confusion, Convulsions, Disequilibrium, Dizziness, Numbness, Focal Weakness, Frequent Falls , Headaches, Lack of Coordination, Loss of Vision, Memory Loss, Paresthesias, Radicular Pain, Restless Legs, Sensory Deficit, Syncope, Tingling, Tremor, Vertigo, Weakness, Other Visual Disturbances, Other - Psychiatric Psychiatric: absent: As Per HPI, Abnormal Sleep Pattern, Anhedonia, Anxiety, Auditory Hallucinations, Behavioral Changes, Change in Appetite, Change in Libido, Confusion, Depression, Difficulty Concentrating, Hallucinations, Homicidal Ideation, Hopelessness, Irritability, Memory Loss, Mood Swings, Panic Attacks, Paranoia, Suicidal Ideation, Visual Hallucinations, Tactile Hallucinations, Other Past Patient History - Tetanus Immunizations Tetanus Immunization: Up to Date - Past Medical History & Family History Past Medical History?: Yes - Past Social History Smoking Status: Light Smoker < 10 Cigarettes Daily Alcohol: Social Drugs: Denies Home Situation {Lives}: With Family - CARDIAC Hx Atrial Fibrillation: Yes Hx Hypertension: Yes - PULMONARY Hx Respiratory Disorders: No - NEUROLOGICAL Hx Neurological Disorder: No - HEENT Hx HEENT Problems: No - RENAL Hx Chronic Kidney Disease: No - ENDOCRINE/METABOLIC Hx Endocrine Disorders: No - HEMATOLOGICAL/ONCOLOGICAL Hx Anemia: Yes - INTEGUMENTARY Hx Dermatological Problems: No - MUSCULOSKELETAL/RHEUMATOLOGICAL Hx Arthritis: Yes Hx Rheumatoid Arthritis: Yes - GASTROINTESTINAL Hx Gastrointestinal Disorders: Yes Hx Ulcer: Yes Other/Comment: perforated ulcer. multiple hernias - GENITOURINARY/GYNECOLOGICAL Hx Genitourinary Disorders: No - PSYCHIATRIC Hx Psychophysiologic Disorder: No Hx Substance Use: No - SURGICAL HISTORY Hx Surgeries: Yes Hx Herniorrhaphy: Yes (x4) Hx Musculoskeletal Surgery: Yes (ankle sx R) Other/Comment: BLEEDING ULCER;RIGHT ANKLE SURGERY/LEFT HERNIA SURGERY/EPIDURAL STEROID INJECTION. Multiple abd sx - ANESTHESIA Hx Anesthesia: Yes Hx Anesthesia Reactions: No Hx Malignant Hyperthermia: No Meds Allergies/Adverse Reactions: Allergies Allergy/AdvReac Type Severity Reaction Status Date / Time colchicine AdvReac Severe NAUSEA Verified 11/20/17 21:08 indomethacin AdvReac Severe NAUSEA Verified 11/20/17 21:08 Physical Exam - Constitutional Appears: Non-toxic, No Acute Distress - Head Exam Head Exam: ATRAUMATIC, NORMOCEPHALIC - Eye Exam Eye Exam: EOMI, Normal appearance, PERRL. absent: Conjunctival injection, Nystagmus, Scleral icterus Pupil Exam: NORMAL ACCOMODATION, PERRL - ENT Exam ENT Exam: Mucous Membranes Moist, Normal Exam - Neck Exam Neck exam: Positive for: Full Rom, Normal Inspection. Negative for: Lymphadenopathy, Tenderness - Respiratory Exam Respiratory Exam: Clear to Auscultation Bilateral, NORMAL BREATHING PATTERN. absent: Rales, Rhonchi, Wheezes, Respiratory Distress - Cardiovascular Exam Cardiovascular Exam: REGULAR RHYTHM, RRR, +S1, +S2. absent: Tachycardia, Gallop , JVD, Rubs, Systolic Murmur - GI/Abdominal Exam GI & Abdominal Exam: Guarding (voluntary guarding ), Normal Bowel Sounds, Soft ( lapartatomy midline scar. ), Tenderness. absent: Distended, Firm, Rebound, Rigid - Extremities Exam Extremities exam: Positive for: full ROM, normal capillary refill, normal inspection, pedal pulses present. Negative for: calf tenderness, pedal edema, tenderness - Back Exam Back exam: NORMAL INSPECTION. absent: CVA tenderness (L), CVA tenderness (R) - Neurological Exam Neurological exam: Alert, CN II-XII Intact, Oriented x3, Reflexes Normal - Psychiatric Exam Psychiatric exam: Normal Affect, Normal Mood - Skin Skin Exam: Dry, Intact, Normal Color, Warm Results - Vital Signs Recent Vital Signs: Last Vital Signs Temp 98.1 F 11/20/17 21:09 Pulse 125 H 11/20/17 21:09 Resp 18 11/20/17 21:09 BP 185/97 H 11/20/17 21:09 Pulse Ox 98 11/21/17 01:01 - Labs Result Diagrams: 11/20/17 22:13 11/20/17 22:13 Labs: Laboratory Results - last 24 hr 11/20/17 11/20/17 22:13 22:13 WBC 9.5 RBC 4.40 Hgb 14.0 Hct 41.6 MCV 94.4 H MCH 31.8 H MCHC 33.7 RDW 13.2 Plt Count 266 D MPV 8.1 Neut % (Auto) 65.4 Lymph % (Auto) 25.2 Lares % (Auto) 7.6 Eos % (Auto) 1.4 Baso % (Auto) 0.4 Neut # (Auto) 6.2 Lymph # (Auto) 2.4 Lares # (Auto) 0.7 Eos # (Auto) 0.1 Baso # (Auto) 0.0 Sodium 141 Potassium 3.4 L Chloride 99 Carbon Dioxide 23 Anion Gap 22 H BUN 9 Creatinine 0.6 L Est GFR ( Amer) > 60 Est GFR (Non-Af Amer) > 60 Random Glucose 100 Calcium 9.7 Total Bilirubin 0.5 AST 21 ALT 25 Alkaline Phosphatase 61 Total Protein 8.2 Albumin 4.5 Globulin 3.6 Albumin/Globulin Ratio 1.2 Lipase 47 Assessment & Plan - Assessment and Plan (Free Text) Assessment: 57 y/o male with PMHx remarkable for HTN, gout, a-fib, whom is s/p explorative laparatomy on 09/2017 admitted for evaluation of worsening abdominal pain. Plan: 1) Abdominal Pain -abd/pelvis CT negative -lipase wnl -PO challenge -Zofran PRN nausea -pain control, 2mg morphine given at 1:00am 2) Hypertension -chronic -uncertain control -resume home meds once pt tolerates PO 3) Gout -chronic -stable -c/w home meds once tolerating PO 4) Diet -full liquids first advance as tolerated -heart healthy 5) Hypokalemia: -3.4 -s/p 1 K-run in ED -repeat BMP for AM pending 6) Prophylaxis -Lovenox 40mg SQ QD 7) Code Status -full code 8) History of Medication/follow up Nonadherence -social work referral
[2017-11-21 01:56] VITALS: TEMP 97.4
[2017-11-21 07:33] VITALS: BP 142/85; PULSE 63; RESP 19
--- NOTE | 2017-11-21 07:46 | CP.PCM.PN ---
Subjective - Date & Time of Evaluation Date of Evaluation: 11/21/17 Time of Evaluation: 07:44 - Subjective Subjective: 57 year old male with PMHx of multiple abdominal surgeries for small bowel obstruction (most recent on 09/29/17) and hernia repair, lumbar spondylosis with chronic pain, HTN, A-fib, gout, perforated GI ulcer, and osteoarthritis seen at bedside for continued, worsening abdominal pain over last two weeks after presenting to ED last night. Patient is AAO x 3 lying supine in bed. He states that he is continuing to experience severe pain in his abdomen at this time rating it 10/10. He denies any further nausea and states that he is tolerating his liquid diet. Also states that he has not experienced a BM or flatulence since yesterday. Denies any issues related to his hx of gout at this time. Denies N/V/F/C/CP/SOB/D/posterior calf pain when squeezed. Objective - Vital Signs/Intake and Output Vital Signs (last 24 hours): Temp Pulse Resp BP Pulse Ox 97.4 F L 63 19 142/85 97 11/21/17 07:33 11/21/17 07:33 11/21/17 07:33 11/21/17 07:33 11/21/17 07:33 - Medications Medications: Current Medications Acetaminophen (Tylenol 325mg Tab) 975 mg PO Q12 PRN PRN Reason: Pain, moderate (4-7) Last Admin: 11/21/17 07:10 Dose: 975 mg Allopurinol (Zyloprim) 300 mg PO DAILY [facility] Enoxaparin Sodium (Lovenox) 40 mg SC DAILY [facility] PRN Reason: Protocol Polyethylene Glycol (Miralax) 17 gm PO DAILY MATTHIEU - Labs Labs: 11/20/17 22:13 11/20/17 22:13 - Constitutional Appears: Well, Non-toxic - Head Exam Head Exam: ATRAUMATIC, NORMOCEPHALIC - Eye Exam Eye Exam: EOMI, PERRL Pupil Exam: PERRL - ENT Exam ENT Exam: Mucous Membranes Moist, Normal Exam - Neck Exam Neck Exam: Full ROM - Respiratory Exam Respiratory Exam: NORMAL BREATHING PATTERN - GI/Abdominal Exam GI & Abdominal Exam: Distended, Firm, Guarding, Rigid, Tenderness - Rectal Exam Rectal Exam: Deferred - Extremities Exam Extremities Exam: Normal Inspection - Neurological Exam Neurological Exam: Alert, Awake, Oriented x3 - Psychiatric Exam Psychiatric exam: Normal Affect, Normal Mood - Skin Skin Exam: Intact, Normal Color Assessment and Plan - Assessment and Plan (Free Text) Assessment: 57 y/o male with PMHx of multiple abdominal surgeries for small bowel obstruction and hernia repair, lumbar spondylosis with chronic pain, HTN, A-fib , gout, perforated GI ulcer, and osteoarthritis Plan: 1) Abdominal Pain - Abd/Pelvis CT: No acute findings. Stable diastases of the abdominal wall. No bowel obstruction. Diverticulosis without acute diverticulitis. -lipase wnl - Tylenol 975 mg PO q12h prn pain - DC all opioid use at this time - Miralax 17 g PO daily 2) Hypertension - chronic -uncertain control - BP 142/85 - Monitor vital signs -resume home meds once pt tolerates PO 3) Gout -chronic -stable - Allopurino 300 mg PO dailyl - PT order for walker training during gouty flare ups 4) Diet - Full Liquid 5) Hypokalemia: -3.9 from 3.4 following 2 K-runs 6) Prophylaxis -Lovenox 40mg SQ QD 7) Code Status -full code 8) History of Medication/follow up Nonadherence -social work referral
[2017-11-21 07:49] LABS: BLOOD UREA NITROGEN 9 mg/dl (9-20); CALCIUM 9.2 mg/dL (8.4-10.2); GFR AFRICAN-AMERICAN > 60; GFR NON-AFRICAN AMERICAN > 60
[2017-11-21] MEDS ORDERED: Enoxaparin 40 mg Syringe SC SCH (09:00)
[2017-11-21] MEDS ORDERED: POLYETHYLENE GLYCOL 3350 17 GM/Dose PACKET PO SCH (09:00)
[2017-11-21] MEDS ORDERED: Simethicone 80 mg Chewtab PO PRN (09:43)
[2017-11-21 10:47] VITALS: O2SAT 98
--- NOTE | 2017-11-21 12:18 | CP.PCM.DIS ---
Provider - Provider Date of Admission: 11/21/17 00:22 Attending physician: Nancy Pickard MD Primary care physician: None Consults: Social Work Referral Time Spent in preparation of Discharge (in minutes): 45 Diagnosis - Discharge Diagnosis (1) Abdominal pain Status: Acute Comment: Patient admitted through ED for abdominal pain x [address] abdomen negative for obstruction, postive for diverticulosis without diverticulitis. Patient given Miralax and Simethicone. Patient passed loose stool with gas and states that he feels much better now. Will follow up with [facility] after discharge Hospital Course - Lab Results Lab Results: Most Recent Lab Values WBC 9.5 K/uL (4.8-10.8) 11/20/17 22:13 RBC 4.40 Mil/uL (4.40-5.90) 11/20/17 22:13 Hgb 14.0 g/dL (12.0-18.0) 11/20/17 22:13 Hct 41.6 % (35.0-51.0) 11/20/17 22:13 MCV 94.4 fl (80.0-94.0) H 11/20/17 22:13 MCH 31.8 pg (27.0-31.0) H 11/20/17 22:13 MCHC 33.7 g/dL (33.0-37.0) 11/20/17 22:13 RDW 13.2 % (11.5-14.5) 11/20/17 22:13 Plt Count 266 K/uL (130-400) D 11/20/17 22:13 MPV 8.1 fl (7.2-11.7) 11/20/17 22:13 Neut % (Auto) 65.4 % (50.0-75.0) 11/20/17 22:13 Lymph % (Auto) 25.2 % (20.0-40.0) 11/20/17 22:13 [place] % (Auto) 7.6 % (0.0-10.0) 11/20/17 22:13 Eos % (Auto) 1.4 % (0.0-4.0) 11/20/17 22:13 Baso % (Auto) 0.4 % (0.0-2.0) 11/20/17 22:13 Neut # (Auto) 6.2 K/uL (1.8-7.0) 11/20/17 22:13 Lymph # (Auto) 2.4 K/uL (1.0-4.3) 11/20/17 22:13 [place] # (Auto) 0.7 K/uL (0.0-0.8) 11/20/17 22:13 Eos # (Auto) 0.1 K/uL (0.0-0.7) 11/20/17 22:13 Baso # (Auto) 0.0 K/uL (0.0-0.2) 11/20/17 22:13 Sodium 140 mmol/l (132-148) 11/21/17 06:35 Potassium 3.9 MMOL/L (3.6-5.0) 11/21/17 06:35 Chloride 101 mmol/L (98-107) 11/21/17 06:35 Carbon Dioxide 28 mmol/L (22-30) 11/21/17 06:35 Anion Gap 15 (10-20) 11/21/17 06:35 BUN 9 mg/dl (9-20) 11/21/17 06:35 Creatinine 0.6 mg/dl (0.8-1.5) L 11/21/17 06:35 Est GFR ( Amer) > 60 11/21/17 06:35 Est GFR (Non-Af Amer) > 60 11/21/17 06:35 Random Glucose 94 mg/dL (75-110) 11/21/17 06:35 Calcium 9.2 mg/dL (8.4-10.2) 11/21/17 06:35 Total Bilirubin 0.5 mg/dl (0.2-1.3) 11/20/17 22:13 AST 21 U/L (17-59) 11/20/17 22:13 ALT 25 U/L (21-72) 11/20/17 22:13 Alkaline Phosphatase 61 U/L (38-126) 11/20/17 22:13 Total Protein 8.2 G/DL (6.3-8.2) 11/20/17 22:13 Albumin 4.5 g/dL (3.5-5.0) 11/20/17 22:13 Globulin 3.6 gm/dL (2.2-3.9) 11/20/17 22:13 Albumin/Globulin Ratio 1.2 (1.0-2.1) 11/20/17 22:13 Lipase 47 U/L (23-300) 11/20/17 22:13 - Hospital Course Hospital Course: 57M p/w abd pain, CT ruled obstruction/diverticulitis, no leukocytosis. Improved, with BM, passing gas, stable for DC No home meds adjusted, patient will take previously prescribed Colace and OTC Gas-X - Date & Time of H&P Date of H&P: 11/21/17 Time of H&P: 12:30 Discharge Exam - Head Exam Head Exam: ATRAUMATIC, NORMAL INSPECTION, NORMOCEPHALIC - Eye Exam Eye Exam: EOMI, PERRL Pupil Exam: NORMAL ACCOMODATION - ENT Exam ENT Exam: Mucous Membranes Moist - Neck Exam Neck exam: Full Rom, Normal Inspection - Respiratory Exam Respiratory Exam: NORMAL BREATHING PATTERN - Cardiovascular Exam Cardiovascular Exam: REGULAR RHYTHM - GI/Abdominal Exam GI & Abdominal Exam: Distended, Firm, Guarding, Normal Bowel Sounds - Rectal Exam Rectal Exam: Deferred - Extremities Exam Extremities exam: normal inspection - Neurological Exam Neurological exam: Alert, Normal Gait, Oriented x3 - Psychiatric Exam Psychiatric exam: Normal Affect, Normal Mood - Skin Skin Exam: Intact, Normal Color, Warm Discharge Plan - Follow Up Plan Condition: STABLE Disposition: HOME/ ROUTINE Instructions: Acute Abdomen (Belly Pain), Adult (DC), Acute Abdominal Pain (DC) , Acute Abdominal Pain (GEN) Additional Instructions: follow up with primary MD 7-10 days Referrals: Latrice Rosales MD [Staff Provider] - Neyda Edwards MD [Staff Provider] - [facility] [Outside] - 11/27/17 3:20 pm
== END 2017-11-21 14:04 | disposition home or self-care (01) ==
LOC: H.ER 21:03 → H.ERHOLD 11-21 00:22 → H.MEDSURG1 11-21 01:49
PROVIDERS: ADMIT Family Medicine Geriatric Medicine; ATTEND Family Medicine Geriatric Medicine
DX: K57.90 Diverticulosis of intestine, part unspecified, without perforation or abscess without bleeding (principal); I10 Essential (primary) hypertension; I48.91 Unspecified atrial fibrillation; M06.9 Rheumatoid arthritis, unspecified; G89.29 Other chronic pain; M10.9 Gout, unspecified; E87.6 Hypokalemia; F17.210 Nicotine dependence, cigarettes, uncomplicated; M47.816 Spondylosis without myelopathy or radiculopathy, lumbar region; M19.90 Unspecified osteoarthritis, unspecified site

== ENCOUNTER 2018-01-16 08:04 | Day surgery (SDC) | payer MEDICARE ==
[2018-01-16] MEDS ORDERED: methylPREDNISolone Depo 80 mg/ml Inj ONE (08:52)
[2018-01-16] MEDS ORDERED: Lidocaine 2% Inj (20ml) ONE (08:53)
[2018-01-16] MEDS ORDERED: Bupivacaine HCl 0.5% PF (30 ml) Inj ONE (08:53)
[2018-01-16] MEDS ORDERED: Bupivacaine 0.5% Inj(30mL) IJ ONE (09:06)
[2018-01-16] MEDS ORDERED: Lidocaine 2% Inj (20ml) IJ ONE (09:06)
[2018-01-16] MEDS ORDERED: methylPREDNISolone Depo 80 mg/ml Inj IM ONE (09:06)
[2018-01-16] MEDS ORDERED: Midazolam 2 MG/2 ML VIAL ONE ×2 (09:10→09:19)
[2018-01-16] MEDS ORDERED: Lactated Ringer's 1,000 ML IV ONE (09:15)
[2018-01-16] MEDS ORDERED: Oxycodone/Acetaminophen 5/325 mg Tab PO ONE (10:14)
[2018-01-16] MEDS ORDERED: Oxycodone/Acetaminophen 5/325 mg Tab ONE (10:17)
--- NOTE | 2018-01-16 10:18 | OP ---
PROCEDURE DATE: 01/16/2018 PREOPERATIVE DIAGNOSIS: Lumbar spondylosis. POSTOPERATIVE DIAGNOSIS: Lumbar spondylosis. PROCEDURE: Left L3, L4 and L5 medial branch nerve radiofrequency. SURGEON: Neyda Edwards MD ANESTHESIOLOGIST: Wale Price MD TYPE OF ANESTHESIA: Monitored anesthesia care. COMPLICATIONS: None. SPECIMEN: None. DESCRIPTION OF PROCEDURE: As follows. After we had a discussion of the procedure with the patient including its risks, benefits, alternative, outcome data, possibility of no effect or increased pain, the patient consented to the procedure. He denied any recent infections, bleeding tendencies or being on anticoagulants; the decision was then made to proceed to the OR. The patient was placed on the fluoroscopy table in a prone position with 2 pillows underneath his abdomen. The back was prepped and draped in the usual sterile fashion and sterile technique was adhered to during the entire procedure. The L4 and L5 vertebral levels were first identified in the anterior posterior view. Angulation towards the left at approximately 15 degrees was obtained to maximize the visualization of the left L4 and L5 pedicles. The L3, L4, and L5 medial branch nerves are located at the intersection of the superior articular process and the transverse process of the L4 and L5 pedicle along with the sacral ala. The skin overlying the three above targeted areas was then infiltrated with 1% lidocaine using a 25-gauge needle. Subsequently, a 22-gauge 3-1/2 inch Stimuplex needle was then incrementally advanced under fluoroscopic guidance until tip of the needle made bony contact with all three target areas. After satisfactory positioning of all three needles, sensory and motor testing were carried out to satisfactory results. At this point, each nerve was anesthetized with 1% lidocaine. Radiofrequency was then carried out at 80 degree Celsius for approximately 1-1/2 minutes. The needle was then rotated and the radiofrequency was carried out at one more time. At the end of the procedure, each nerve was treated with a combination of 0.5% Marcaine and Depo-Medrol. The patient's back was cleaned and dried, and bandages were applied. The patient was then transferred to recovery area in good condition without any signs of APPLICATION DEVELOPMENT DIRECTOR toxicity or any neurological deficits. He will have a followup in our office in approximately 2 to 4 weeks. En-Dominic Edwards MD [facility] # [id number]
--- NOTE | 2018-01-16 10:58 | RAD ---
PROCEDURE: Fluoroscopy up to 1 hr. HISTORY: PAIN MANAGEMENT COMPARISON: None TECHNIQUE: Standard protocol for this study/examination. FINDINGS: Total fluoroscopic time (continuous mode) utilized during the procedure 25.6 (seconds). Total exam DLP: (mGy) 12.28. Submitted images from the current procedure: 2.0 IMPRESSION: Less than 1 hr fluoroscopic time utilized during performance of the procedure.
[2018-01-16 10:59] VITALS: RESP 20
[2018-01-16 12:38] VITALS: BP 153/87; PULSE 100; TEMP 97.8; O2SAT 94
== END 2018-01-16 11:30 | disposition home or self-care (01) ==
LOC: H.OPSURG 08:04
PROVIDERS: ATTEND Anesthesiology
DX: M47.816 Spondylosis without myelopathy or radiculopathy, lumbar region (principal); I10 Essential (primary) hypertension
CPT/HCPCS: 64635; 64636; 82948; J1040; J2250; J3010; J7120